=== PATIENT | female | born 1970 | race Caucasian/White ===

== ENCOUNTER 2018-09-28 18:11 | Emergency (ER) | payer BC ==
[2018-09-28 20:57] LABS: Absolute Lymphocytes (CBC) 1.6 K/uL (0.7-4.9); Absolute Monocytes 1.3 K/uL (0.1-1.3); Absolute Neutrophil 5.8 K/uL (1.8-8.0); Basophils % 0.6 % (0-1.3); Eosinophils % 0.8 % (0-4.4); Hematocrit 34.9 % (36.0-45.0); Lymphocytes % 18.3 % (15.3-44.8); MPV 9.4 fL (7.6-11.3); Monocytes % 14.7 % (3.3-12.3); RBC Red Blood Cell Count 3.99 M/uL (3.86-4.86)
[2018-09-28] MEDS ORDERED: NA CHLORIDE 0.9% 1,000 ML ONE (21:02)
[2018-09-28 21:17] LABS: Urine Blood 1+ (NEG); Urine Glucose NEGATIVE (NEG); Urine Protein NEGATIVE (NEG)
[2018-09-28] MEDS ORDERED: CIPROFLOXACIN HCL 500 MG TAB ONE (21:28)
[2018-09-28 21:31] LABS: Urine Bacteria >50 /HPF (<20); Urine RBC NONE SEEN /HPF (NONE SEEN)
[2018-09-28 21:32] LABS: Urine Culture Reflex Order REFLEXED
--- NOTE | 2018-09-28 21:49 | ER ---
Nurse's Notes [facility] Name: Mallory Santiago Age: 48 yrs Sex: Female : 1970 Arrival Date: 09/28/2018 Time: 18:14 Bed 19 Private MD: Heath De La Garza E Diagnosis: Urinary tract infection, site not specified Presentation: 09/28 19:17 Presenting complaint: Patient states: "I having heat flashes for a week now. I though jd3 it was just menopause, but I was running a fever. I took 4 ibuprofen and feeling better since waiting, but I just won't go away. I was seen at urgent care and with my vital signs over there they said to come here.". Transition of care: patient was not received from another setting of care. Onset of symptoms was September 18, 2018. Risk Assessment: Do you want to hurt yourself or someone else? Patient reports no desire to harm self or others. Initial Sepsis Screen: Does the patient meet any 2 criteria? No. Patient's initial sepsis screen is negative. Does the patient have a suspected source of infection? No. Patient's initial sepsis screen is negative. Care prior to arrival: None. 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 - Social history:: Smoking status: Patient/guardian denies using tobacco. - Ebola Screening: : Patient negative for fever greater than or equal to 101.5 degrees Fahrenheit, and additional compatible Ebola Virus Disease symptoms. - Family history:: not pertinent. - Hospitalizations: : No recent hospitalization is reported. Screenin:58 Abuse screen: Denies threats or abuse. Nutritional screening: No deficits noted. tl2 Tuberculosis screening: No symptoms or risk factors identified. Fall Risk None identified. Assessment: 20:40 General: Appears in no apparent distress. uncomfortable, Behavior is calm, cooperative, tl2 appropriate for age. General: Reports hot flashes. Pain: Complains of pain in left low back and right low back. Neuro: Level of Consciousness is awake, alert, obeys commands, Oriented to person, place, time, situation. Cardiovascular: Denies chest pain. Respiratory: Airway is patent Respiratory effort is even, unlabored, Respiratory pattern is regular, symmetrical. GI: No signs and/or symptoms were reported involving the gastrointestinal system. : No signs and/or symptoms were reported regarding the genitourinary system. Derm: Skin is pink, warm \\T\\ dry. 22:01 Reassessment: Patient and/or family updated on plan of care and expected duration. Pain ea level reassessed. Patient is alert, oriented x 3, equal unlabored respirations, skin warm/dry/pink. Discharge instruction given to patient, verbalized the understanding of instruction Patient states feeling better. Vital Signs: 19:23 BP 120 / 84; Pulse 97; Resp 17 S; Temp 100.3(O); Pulse Ox 98% on R/A; Weight 90.72 kg jd3 (R); Height 5 ft. 6 in. (167.64 cm) (R); Pain 0/10; 20:30 BP 131 / 81; Pulse 90; Resp 18; Temp 99.5(O); Pulse Ox 100% on R/A; mt 22:02 BP 130 / 91; Pulse 90; Resp 18; Temp 98.7(O); Pulse Ox 99% ; ea 19:23 Body Mass Index 32.28 (90.72 kg, 167.64 cm) jd3 ED Course: 18:14 Patient arrived in ED. rg4 18:14 Heath De La Garza MD is Private Physician. rg4 19:21 Triage completed. jd3 19:24 Arm band placed on Patient notified of wait time. jd3 20:25 Jaswinder Serrano MD is Attending Physician. rn 20:35 Rani Avalos RN is Primary Nurse. tl2 20:45 Inserted saline lock: 20 gauge in left antecubital area, using aseptic technique. Blood tl2 collected. 20:58 Patient has correct armband on for positive identification. Bed in low position. Call tl2 light in reach. Side rails up X 1. Adult w/ patient. 21:55 IV discontinued, intact, bleeding controlled, No redness/swelling at site. Pressure ea dressing applied. 22:02 No provider procedures requiring assistance completed. ea Administered Medications: 21:08 Drug: NS 0.9% 1000 ml Route: IV; Rate: 1000 ml; Site: left antecubital; tl2 21:19 Drug: Cipro 500 mg Route: PO; tl2 Outcome: 21:49 Discharge ordered by . rn 22:02 Discharged to home ambulatory, with friend. ea 22:02 Condition: improved 22:02 Discharge instructions given to patient, Instructed on discharge instructions, follow up and referral plans. medication usage, Demonstrated understanding of instructions, follow-up care, medications, Prescriptions given X 1. 22:03 Patient left the ED. ea Addendum: 10/02/2018 07:53 Addendum: Culture Results: Positive urine culture. No further action required. Bacteria i w sensitive to prescribed antibiotic. Signatures: Ofe Garcia, RN Jaswinder Wills MD MD rn Knox, Taylor, RN RN tl2 Brooklyn Mendez Moriah mt Antunez, Elena, RN RN ea Davies, Jonathon, RN RN jd3
--- NOTE | 2018-09-28 21:49 | EDPHYS ---
Physician Documentation [facility] Name: Mallory Santiago Age: 48 yrs Sex: Female : 1970 Arrival Date: 09/28/2018 Time: 18:14 Bed 19 Private MD: Heath De La Garza E ED Physician Jaswinder Serrano HPI: 09/28 21:46 This 48 yrs old Female presents to ER via Ambulatory with complaints of rn Weakness, Fever, High Blood Pressure. 21:46 Reports fever, weakness, low back pain, fatigue and malaise. No other symptoms. . rn Onset: The symptoms/episode began/occurred 2 day(s) ago. Severity of symptoms: At their worst the symptoms were mild in the emergency department the symptoms are unchanged. The patient has not experienced similar symptoms in the past. The patient has not recently seen a physician. 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 - Social history:: Smoking status: Patient/guardian denies using tobacco. - Ebola Screening: : Patient negative for fever greater than or equal to 101.5 degrees Fahrenheit, and additional compatible Ebola Virus Disease symptoms. - Family history:: not pertinent. - Hospitalizations: : No recent hospitalization is reported. ROS: 21:46 Constitutional: + fever Eyes: Negative for injury, pain, redness, and discharge, Neck: rn Negative for injury, pain, and swelling, Cardiovascular: Negative for chest pain, palpitations, and edema, Respiratory: Negative for shortness of breath, cough, wheezing, and pleuritic chest pain, Abdomen/GI: Negative for abdominal pain, nausea, vomiting, diarrhea, and constipation, Back: + low back pain MS/Extremity: Negative for injury and deformity, Skin: Negative for injury, rash, and discoloration, Neuro: + generalized weakness Exam: 21:46 Constitutional: This is a well developed, well nourished patient who is awake, alert, rn and in no acute distress. Head/Face: Normocephalic, atraumatic. Eyes: Pupils equal round and reactive to light, extra-ocular motions intact. Lids and lashes normal. Conjunctiva and sclera are non-icteric and not injected. Cornea within normal limits. Periorbital areas with no swelling, redness, or edema. ENT: MMM, no stridor Neck: Trachea midline, no thyromegaly or masses palpated, and no cervical lymphadenopathy. Supple, full range of motion without nuchal rigidity, or vertebral point tenderness. No Meningismus. Cardiovascular: Regular rate and rhythm. No pulse deficits. Respiratory: Lungs have equal breath sounds bilaterally, clear to auscultation. No increased work of breathing, no retractions or nasal flaring. Abdomen/GI: sof,t non-tender MS/ Extremity: Pulses equal, no cyanosis. Neurovascular intact. Full, normal range of motion. Equal circumference. Neuro: Awake and alert, GCS 15, oriented to person, place, time, and situation. Cranial nerves II-XII grossly intact. Motor strength 5/5 in all extremities. Sensory grossly intact. Cerebellar exam normal. Vital Signs: 19:23 BP 120 / 84; Pulse 97; Resp 17 S; Temp 100.3(O); Pulse Ox 98% on R/A; Weight 90.72 kg jd3 (R); Height 5 ft. 6 in. (167.64 cm) (R); Pain 0/10; 20:30 BP 131 / 81; Pulse 90; Resp 18; Temp 99.5(O); Pulse Ox 100% on R/A; mt 22:02 BP 130 / 91; Pulse 90; Resp 18; Temp 98.7(O); Pulse Ox 99% ; ea 19:23 Body Mass Index 32.28 (90.72 kg, 167.64 cm) jd3 MDM: 20:25 Patient medically screened. rn 21:46 Differential Diagnosis UTI, flu, viral syndrome. Data reviewed: vital signs, nurses rn notes, lab test result(s), and as a result, I will discharge patient. Counseling: I had a detailed discussion with the patient and/or guardian regarding: the historical points, exam findings, and any diagnostic results supporting the discharge/admit diagnosis, lab results, the need for outpatient follow up, to return to the emergency department if symptoms worsen or persist or if there are any questions or concerns that arise at home. Response to treatment: the patient's symptoms have mildly improved after treatment, and as a result, I will discharge patient. Special discussion: I discussed with the patient/guardian in detail that at this point there is no indication for admission to the hospital. It is understood, however, that if the symptoms persist or worsen the patient needs to return immediately for re-evaluation. 09/28 20:41 Order name: CBC with Diff; Complete Time: 21:46 rn 09/28 20:41 Order name: Basic Metabolic Panel; Complete Time: :46 rn 09/28 20:41 Order name: Urine Culture 09/28 20:41 Order name: Urine Microscopic Only; Complete Time: :46 09/28 20:41 Order name: Flu; Complete Time: :46 09/28 20:41 Order name: Strep; Complete Time: :46 09/28 20:41 Order name: IV Start; Complete Time: 20:43 09/28 20:41 Order name: Urine Dipstick-Ancillary (obtain specimen); Complete Time: 20:43 09/28 20:57 Order name: Urine Dipstick--Ancillary (enter results); Complete Time: 21:46 ar 09/28 20:57 Order name: Urine --Ancillary (enter results); Complete Time: :46 [facility] 09/28 21:26 Order name: Throat Culture EDMS Administered Medications: 21:08 Drug: NS 0.9% 1000 ml Route: IV; Rate: 1000 ml; Site: left antecubital; tl2 21:19 Drug: Cipro 500 mg Route: PO; tl2 Disposition: 09/28/18 21:49 Discharged to Home. Impression: Urinary tract infection, site not specified. - Condition is Stable. - Discharge Instructions: Urinary Tract Infection, Adult. - Prescriptions for Cipro 500 mg Oral Tablet - take 1 tablet by ORAL route every 12 hours for 10 days; 20 tablet. - Medication Reconciliation Form, Thank You Letter, Antibiotic Education, Prescription Opioid Use form. - Follow up: Private Physician; When: As needed; Reason: Recheck today's complaints, Re-evaluation by your physician. - Problem is new. - Symptoms have improved. Signatures: Dispatcher [employer] EDMS Jaswinder Serrano MD MD rn Knox, Taylor, RN RN tl2 Kristina Dick, RN RN ea Beto Echavarria RN RN jd3 Corrections: (The following items were deleted from the chart) 22:03 21:49 09/28/2018 21:49 Discharged to Home. Impression: Urinary tract infection, site ea not specified. Condition is Stable. Prescriptions for Cipro 500 mg Oral Tablet - take 1 tablet by ORAL route every 12 hours for 10 days; 20 tablet. and Forms are Medication Reconciliation Form, Thank You Letter, Antibiotic Education, Prescription Opioid Use. Follow up: Private Physician; When: As needed; Reason: Recheck today's complaints, Re-evaluation by your physician. Problem is new. Symptoms have improved. rn
== END 2018-09-28 22:03 | disposition home or self-care (01) ==
LOC: ER 18:11
DX: N39.0 Urinary tract infection, site not specified (principal)
CPT/HCPCS: 36415; 80048; 81003; 81015; 81025; 85025; 87070; 87077; 87081; 87086; 87088; 87186; 87804; 99284; J7030

== ENCOUNTER 2018-12-28 07:41 | Day surgery (SDC) | payer BC ==
[2018-12-28] MEDS ORDERED: Ringers Lactate 1,000 ML IV ONE (08:25)
[2018-12-28] MEDS ORDERED: PROPOFOL 200 MG/20 ML VIAL IV ONE (09:57)
[2018-12-28] MEDS ORDERED: LIDOCAINE 2% MPF 5 ML VIAL ONE (09:57)
[2018-12-28] MEDS ORDERED: MIDAZOLAM HCL 2 MG/2 ML INJ ONE (09:57)
[2018-12-28] MEDS ORDERED: FENTANYL CITR 100 MCG/2 ML ONE (09:57)
[2018-12-28] MEDS ORDERED: ONDANSETRON 4 MG/2 ML VIAL ONE (09:58)
[2018-12-28] MEDS ORDERED: LIDOCAINE 1% W/EPI 1:100,000 MDV 50 ML VIAL ONE (10:01)
[2018-12-28] MEDS ORDERED: NA CHLORIDE 0.9% 1,000 ML ONE (10:01)
[2018-12-28] MEDS ORDERED: KETOROLAC 30 MG/ML INJ ONE (11:06)
--- NOTE | 2018-12-29 00:12 | OP ---
Date of Procedure: 12/28/2018 Surgeon: Aleisha Woodson MD Preoperative Diagnosis: Postmenopausal bleeding. Postoperative Diagnoses: Postmenopausal bleeding and endometrial polyp. Procedures: Hysteroscopy, polypectomy, dilation and curettage. Anesthesia: MAC plus paracervical block. Specimens: Endometrial curettings and polyp. Complications: No complications. Drains: None. Patient's Condition: Stable. Findings: There was an endometrial polyp, soft, about 1.5 cm in the uterine cavity starting in the p osterior wall inferior to the right coronal end. The rest of the endometrium appeared to be slightly thickened. Both tubal ostia were visualized. Polyp was removed; however, it was not removed as a s chelo specimen became of its texture being very friable. The patient is a 48-year-old lady with secondary amenorrhea for more than 12 months, started to have some bleeding after starting her breast Brisdelle for menopausal symptoms, which is a nonhormonal the rapy. Evaluation with ultrasound showed thickened endometrium, so plan was to get endometrial sampli ng. Therefore, she was consented for this procedure and brought to the hospital. Description Of Procedure: After informed consent was verified, she was taken back to the OR, placed in a supine fashion on the operating table. After MAC was given, she was placed in dorsal lithotomy position. Pelvic exam was performed. Uterus found to be anteflexed, cervix high. Speculum placed t o expose the cervix, anterior lip grasped with 2 Allis clamps after injecting with 1% lidocaine mixed with 1:100,000 epinephrine. About 8 cc was injected here. Then 8 cc on each side was injected at 4 and 8 o'clock positions of the cervicovaginal junction for a paracervical block. Prep x3 with Betad ine was done. Direct hysteroscopy was performed. The SlimLine hysteroscope entering the cervical ca nal and then into the uterine cavity. Just at the lower aspect of the endometrial canal there was th e polyp that was visualized, pictures were taken. The polyp was traced back to the top of the multisensor intelligence officer ior wall towards the right. Rest of the endometrium also appeared to be thickened. Scope was pulled out and endometrial polyp was attempted to be removed with the help of Carlos forceps. As the tiss ue was friable, was coming out in a very small fragments, so larger endometrial polyp forceps was ins erted and the polypoid material retrieved. Then curettings were performed with a medium #2 endometri al curette. All the specimens were handed out for permanent pathology. Hysteroscopy was performed j ust to re-evaluate the cavity and the polyp was removed. Instrument, needle and sponge counts were done and were correct at the end the case. The patient silvana erated the procedure well. She was recovered from anesthesia in the OR and taken to PACU in stable c ondition. She will follow up with me in 1 week. ARNOLDO Voice ID: [id number] Report ID: [id number]
== END 2018-12-28 11:40 | disposition home or self-care (01) ==
LOC: OR 07:41
PROVIDERS: ATTEND Obstetrics & Gynecology
PROC: 0UB97ZX Excision of Uterus, Via Natural or Artificial Opening, Diagnostic (ICD-10-PCS; 2018-12-28)
PROC: 0UJD8ZZ Inspection of Uterus and Cervix, Via Natural or Artificial Opening Endoscopic (ICD-10-PCS; 2018-12-28)
PROC: 0UDB7ZX Extraction of Endometrium, Via Natural or Artificial Opening, Diagnostic (ICD-10-PCS; principal; 2018-12-28 10:30)
DX: N71.1 Chronic inflammatory disease of uterus (principal); N85.01 Benign endometrial hyperplasia; N84.0 Polyp of corpus uteri; N95.0 Postmenopausal bleeding; I10 Essential (primary) hypertension; Z79.899 Other long term (current) drug therapy
CPT/HCPCS: 81025; 88305; J2250; J2405; J2704; J3010; J7030

== ENCOUNTER 2019-03-08 09:23 | Day surgery (SDC) | payer BC ==
[2019-03-05 11:27] LABS: Urine Appearance CLEAR; Urine Bilirubin NEGATIVE (NEG); Urine Blood NEGATIVE (NEG); Urine Color YELLOW; Urine Glucose NEGATIVE (NEG); Urine Protein NEGATIVE (NEG); Urine Specific Gravity 1.015 (1.005-1.030); Urine Urobilinogen 0.2 mg/dL (0.2-1.0); Urine pH 6.5 (5.0-7.0)
[2019-03-05 11:29] LABS: Urine Microscopic Reflex NO UMIC
[2019-03-05 11:31] LABS: Absolute Lymphocytes (CBC) 1.7 K/uL (0.7-4.9); Basophils % 0.8 % (0-1.3); Hematocrit 39.4 % (36.0-45.0); Lymphocytes % 31.3 % (15.3-44.8); MPV 9.5 fL (7.6-11.3); RBC Red Blood Cell Count 4.46 M/uL (3.86-4.86)
--- OUTSIDE RECORDS SUMMARY | 2019-03-08 09:26 | XMS REPORT | Summary of Care ---
:1970 Author Organization [facility] Address [address] [place] [id number] Care Team Providers Name Role Phone Pcp, Patient Does Not Have A Primary Care Provider Reason for Visit Radiology Services (Routine) Status Reason Specialty Diagnoses / Referred By Referred To Procedures Contact Contact New Request Diagnostic Diagnoses Left knee pain, unspecified chronicity Yadiel Ventura Radiology Procedures XR KNEE <3 VW [facility] MD Sherrill [address] [place] [address] Encounter Details Date Type Department Care Team Description 02/05/2019 Hospital [facility] [address] [place] [address] [place] [phone] Allergies No Known Allergiesdocumented as of this encounter (statuses as of 02/06/2019) Medications Medication Sig Dispensed Refills Start Date End Date Status hydrochlorothiazide 5 03/25/2015 Active (ESIDRIX) 25 mg tablet valACYclovir (VALTREX) 5 03/25/2015 Active 500 mg tablet terbinafine HCl (LAMISIL) Take 1 Tab by 42 Tab 0 04/22/2015 Active 250 mg tablet mouth daily. PARoxetine TAKE 1 CAPSULE 4 01/18/2019 Active mesylate,menop.sym, 7.5 BY MOUTH mg capsule EVERYDAY AT BEDTIME diclofenac 75 mg EC Take 1 tablet by 60 tablet 1 02/05/2019 Active tabletIndications: Left mouth 2 (two) knee pain, unspecified times daily with chronicity meals. methylPREDNISolone Take by mouth 21 Each 0 02/05/2019 Active (MEDROL, VICKY,) 4 mg SEE-INSTRUCTIONS tabletsIndications: Left . follow package knee pain, unspecified directions chronicity documented as of this encounter (statuses as of 02/06/2019) Active Problems Not on filedocumented as of this encounter (statuses as of 02/06/2019) Social History Tobacco Use Types Packs/Day Years Used Date Never Smoker Smokeless Tobacco: Never Used Alcohol Use Drinks/Week oz/Week Comments Yes 0 Standard drinks or equivalent 0.0 Sex Assigned at Date Recorded Not on file Job Start Date Occupation Industry Not on file Not on file Not on file Travel History Travel Start Travel End No recent travel history available. documented as of this encounter Last Filed Vital Signs Not on filedocumented in this encounter Plan of Treatment Name Type Priority Associated Diagnoses Date/Time XR KNEE <3 VW LEFT IMAGING Routine Left knee pain, 02/05/2019 2:19 PM CDT unspecified chronicity Name Type Priority Associated Diagnoses Order Schedule XR KNEE <3 VW LEFT IMAGING Routine Left knee pain, 1 Occurrences starting unspecified chronicity 02/05/2019 until 02/05/2019 Health Maintenance Due Date Last Done Comments DTaP,Tdap,and Td Vaccines ( - 1989 Tdap) PAP SMEAR 1991 MAMMOGRAM 2010 INFLUENZA VACCINE 03/11/2019 PNEUMOCOCCAL 0-64 YEARS COMBINED Aged Out No longer eligible based on SERIES patient's age to complete this topic documented as of this encounter Results Not on filedocumented in this encounter Visit Diagnoses Diagnosis Left knee pain, unspecified chronicity documented in this encounter Insurance Payer Benefit Plan Subscriber ID Effective Dates Phone Address Type / Group BCBS OF [facility] [id number] 2013-Heidi [phone] [address] PPO/POS [id number] [id number] [place] [address] documented as of this encounter
--- OUTSIDE RECORDS SUMMARY | 2019-03-08 09:26 | XMS REPORT ---
:1970 [facility] Address [address] [place] [address] [place] [id number] Care Team Providers Name Role Phone Unavailable Unavailable Unavailable Problems This patient has no known problems. Allergies, Adverse Reactions, Alerts This patient has no known allergies or adverse reactions. Medications This patient has no known medications.
[2019-03-08] MEDS ORDERED: PROPOFOL 200 MG/20 ML VIAL IV ONE (09:42)
[2019-03-08] MEDS ORDERED: MIDAZOLAM HCL 2 MG/2 ML INJ ONE ×2 (09:42→10:28)
[2019-03-08] MEDS ORDERED: LIDOCAINE 1% MPF 2 ML AMPULE ONE (09:42)
[2019-03-08] MEDS ORDERED: FENTANYL CITR 100 MCG/2 ML ONE ×4 (09:42→14:21)
[2019-03-08] MEDS ORDERED: Ringers Lactate 1,000 ML IV ONE ×2 (09:43→12:38)
[2019-03-08] MEDS ORDERED: CEFAZOLIN/SWI 1gm 1 GM/10 ML SYR ONE (09:44)
[2019-03-08] MEDS ORDERED: LIDOCAINE 2% MPF 5 ML VIAL ONE (09:44)
[2019-03-08] MEDS ORDERED: CEFAZOLIN/SWI 2gm 2 GM/20 ML SYR ONE (09:44)
[2019-03-08 10:24] LABS: Specific Gravity 1.025 (1.005-1.030)
[2019-03-08] MEDS: NA CHLORIDE 0.9% 1,000 ML ONE ×2 (10:31→10:35)
[2019-03-08] MEDS: CEFAZOLIN 3 GM in NA CHLORIDE 0.9% 100 ML IM SCH ×2 (10:32→10:35)
[2019-03-08] MEDS ORDERED: GLYCOPYRROLATE 0.2 MG/ML SYR ONE ×2 (10:54→13:15)
[2019-03-08] MEDS ORDERED: dexAMETHasone 10 MG/ML VIAL ONE (10:55)
[2019-03-08] MEDS ORDERED: SCOPOLAMINE HYDROBROMIDE PATCH TD ONE (11:06)
[2019-03-08] MEDS ORDERED: ROCURONIUM 50 MG/5 ML VIAL IV ONE (11:24)
[2019-03-08] MEDS: Ringers Lactate 1,000 ML IV ONE ×2 (11:30→11:35)
[2019-03-08] MEDS ORDERED: MORPHINE 10 MG/ML VIAL ONE (11:33)
[2019-03-08] MEDS ORDERED: HYDRALAZINE HCL 20 MG/ML VIAL ONE (11:37)
[2019-03-08] MEDS ORDERED: EPHEDRINE SULF 50 MG/ML VIAL ONE (12:30)
[2019-03-08] MEDS ORDERED: Phenylephrine HCl 10 MG/ML 1 ML VIAL ONE (12:41)
[2019-03-08] MEDS ORDERED: NS 0.9% VIAL 20 ML ONE (12:43)
[2019-03-08] MEDS ORDERED: NEOSTIGMINE 1 MG/ML -10 ML VIAL ONE (13:12)
[2019-03-08] MEDS: HYDROMORPHONE HCL 1 MG/ML INJ ONE ×2 (13:48→13:59)
[2019-03-08] MEDS ORDERED: HYDROCODONE/APAP 10/325 TAB ONE (14:29)
--- NOTE | 2019-03-08 23:48 | OP ---
Date of Procedure: 03/08/2019 Surgeon: Aleisha Woodson MD Director Dental Services: Annmarie Kent. Preoperative Diagnoses: Thickened endometrium, heavy periods, pelvic pain, history of chronic pelvic inflammatory disease Postoperative Diagnoses: AUB-E/A, adenomyosis, extensive adhesions of the bladder to the uterus, ext ensive endometriosis. Procedures Performed: Total laparoscopic hysterectomy, bilateral salpingo-oophorectomy, endometriosi s excision, extensive lysis of bladder adhesions, cystoscopy. Anesthesia: General endotracheal. Specimens: Uterus, bilateral tubes and ovaries. Endometriosis on the right mesosalpinx and the left uterosacral ligament were included with the specimen. Minimal amount of periureteric endometriosis left on the peritoneum. Cystoscopy negative with strong streams of urine. No injury to the bladder. Complications/drains: No complications or drains. Findings: Endometriosis seen in the right mesosalpinx, left uterosacral ligament, lateral wall on th e right side. Extensive adhesions of the uterus to the anterior abdominal wall to the bladder all th e way from one round ligament to the other with no mobility for the uterus. Both proximal hydrosalpi nges and endometriosis on the right side. Indications For Procedure: Patient is a 49-year-old referred to me for pelvic pain, history of chron ic PID for this patient. Sampling, no endometrial atypia or malignancy. After discussing all the op tions including alternative medical treatments, we consented for hysterectomy, bilateral salpingectom y. Oophorectomy was recommended as well as she is 49 with pelvic pain without any other abnormal pel luc pathology. She was counseled that the benefits of surgery and relief from pain were higher than the risk of hormone therapy and if need be postoperatively that we would briefly give her hormone the rapy. After understanding all this, patient was consented, taken back to the OR. She also had histo ry of 2 sections, tubal ligation, and classical cesareans. So, explained that the risk of b ladder injury would be higher due to her scar and patient understood this; and discussion about cysto scopy, possible leaving the catheter in if there was an injury that occurs during the surgery and rep air for about a week was done, and the patient was okay with this. Description Of Procedure: After informed consent was verified, she was brought back to the OR. 3 g of Ancef was given. Patient was placed in a supine position on the operating table, general anesthes ia given, placed in a dorsal lithotomy position using Carlos stirrups. Arms tucked by the side. SCDs placed. Time-out done. Uterus palpated and enlarged, decreased mobility, anteflexed. No nodularit y was palpated. Abdomen, vulva, vagina, and perineum were prepped and draped in a sterile fashion. Goetz was placed to drain the bladder and attached to cysto tubing for retrograde filling. Large VCa re introduced into the uterus and fixed in place. There was no descensus of the uterus. 1 cm infraumbilical incision was made with scalpel using open laparoscopy technique. Fascia was inci sed, tagged with sutures of 0 Vicryl, and peritoneum entered bluntly with my finger. S-retractors we re placed, Blayne introduced. Site of entry checked, unremarkable. 10 mm suprapubic and 5 mm left l ower quadrant ports were placed under direct vision. The upper abdominal surface was unremarkable. Patient was placed in Trendelenburg. Omentum and the small bowel were retracted superiorly. Inferiorly, the tubes and ovaries as dictated above. Endomet riosis seen as above and there were extensive adhesions of the bladder to the anterior wall of the ut erus and the abdominal wall together. So, first LigaSure was taken using the cutting mode on this. All the adhesions were sharply taken down. Windows were made after identifying that the dome of the bladder was involved in these adhesions. Careful dissection was performed sharply with scissors and the LigaSure taking down the first few layers of the adhesions in the center, then onto the side on t he right, then finally on the left side. The adhesions were most dense on this side starting from th e level of the round ligament. There was completely obliterated anterior broad ligament because of t he adhesions of the bladder. Once the lateral broad ligament was opened up parallel to the infundibu lopelvic ligament, the sidewall was opened up the ovarian vessels from the larger vessels in the lateral wall including the iliac vessels. Then, this dissection was carried inferiorly and di stally towards the mesosalpinx and then posterior broad ligament. Once all this was isolated, the ur eter was identified and the ureter was dissected laterally and inferiorly while creating a window in the peritoneum opening up the posterior broad ligament. Once this was done, this extension was don ed all the way down to the IP to isolate the IP on the pedicle. Then, the utero-ovarian ligament, me sosalpinx, tube were all cauterized and cut, and then the infundibulopelvic ligament was cauterized a nd cut and left with the uterine specimen. Posterior broad ligament was dissected all the way to the level of the left distal uterosacral ligame nt. Here, the dissection was performed staying slightly laterally dissecting the ureter away and cristopher ping the endometriotic implants with the peritoneal covering of the uterus. This was done by the hel p of LigaSure and dissecting the implants medially. Then, going to the posterior cul-de-sac, the per itoneum was opened up. Then, coming to the top, dissection was performed to take down the round liga ment once this was isolated both superiorly and inferiorly. Once this was , then the broad ligament was taken down. After restoring the anatomy of the bladder and the anterior cul-de-sac, the n this dissection was performed. Once I came down to the bladder flap, the LigaSure was used to open up the peritoneum. Then, window was made posterior to the bladder right on top of the anterior vagi nal wall. This was taken down with the help of the LigaSure to separate it from anterior vaginal wal l so this could be pushed inferiorly for my vaginal cuff incision. Then, the vessels were isolated. On the opposite side, similar dissection was performed. The mesosalpinx was dissected much more lat erally in order for me to get the endometriotic implants included with the specimen. Once this was d one, the tube was removed separately and removed through the suprapubic port and then the round ligam ent was taken down with anterior broad ligament. Again, the same adhesions were present on the sides , so time was taken to push spread and made windows and take down the bladder away from the anterior broad ligament anterior aspect of the suprapubic area. After all these were taken down, then the rou nd ligament was taken down and then the posterior broad ligament was dissected all the way to the rig ht uterosacral ligament and then the broad ligament skeletonized. There was not much left here. The anterior vaginal wall was dissected at the level of the vaginal cuff. Monopolar hook blade was used to create an opening in the fascia entering the loose areolar tissue entering the vesicovaginal spac e. Once this avascular space was entered, the bladder was pushed inferiorly at least 2 cm below the level of the vaginal cuff; and once all the bladder was dissected away, then monopolar was used to ex tend this incision on both sides. Then, the vessels were taken down on the right side with the bipol ar basket tip, then with the help of the LigaSure vessel sealer. Then, the cardinal ligaments were a lso dissected and taken down on the right side. Then, all this dissection was performed on the left side. The cup was nicely exposed. Monopolar hook blade was used to perform a circumferential colpot zoë and the specimen was detached. 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 This was slowly maneuvered out and the e ntire specimen was retrieved without any problems and the uterus was attached to the left tube and ov jenny. The right ovary was dissected as well and pulled out through the vagina and the vaginal closure was performed. For occlusion, a lap sponge was stuffed into glove and placed in the vagina for pneu mo-occlusion. Then, after thorough irrigation and suction were performed, the colpotomy was closed i n 2 layers with the help of 0 barbed suture. Starting from the left side, a continuous running sutur e was placed all the way to the right and then a second imbricating layer was placed on top of this t o close it together and then it was back sutured about another 2 stitches so that they would not unwi nd. Thorough irrigation and suction were performed. Excellent hemostasis was secured. Both ureters had no evidence of electrical, mechanical, or thermal injury to them. Then, the trocars were remove d under direct vision. Fascia at the umbilicus was closed with the help of 0 Vicryl in a figure-of-e ight fashion. Cystoscopy was performed with 17-[place] sheath, 30-degree lens and normal saline. Exc ellent streams of urine from the ureteric orifices. No trauma to the bladder. The bladder was drain ed. Vaginal cuff was inspected and there was excellent closure and good support. All the instrument , needle, and sponge counts were done and were correct at the end of the case. After the Goetz was r emoved, all the counts were correct. Patient was recovered from anesthesia and taken to the PACU in stable condition. She will follow up with me in 1 week. ARNOLDO Voice ID: [id number] Report ID: [id number]
== END 2019-03-08 15:34 | disposition home or self-care (01) ==
LOC: OR 09:23
PROVIDERS: ATTEND Obstetrics & Gynecology
PROC: 0UT24ZZ Resection of Bilateral Ovaries, Percutaneous Endoscopic Approach (ICD-10-PCS; 2019-03-08)
PROC: 0UT74ZZ Resection of Bilateral Fallopian Tubes, Percutaneous Endoscopic Approach (ICD-10-PCS; 2019-03-08)
PROC: 0TNB4ZZ Release Bladder, Percutaneous Endoscopic Approach (ICD-10-PCS; 2019-03-08)
PROC: 0UB44ZZ Excision of Uterine Supporting Structure, Percutaneous Endoscopic Approach (ICD-10-PCS; 2019-03-08)
PROC: 0DBW4ZZ Excision of Peritoneum, Percutaneous Endoscopic Approach (ICD-10-PCS; 2019-03-08)
PROC: 0UT94ZZ Resection of Uterus, Percutaneous Endoscopic Approach (ICD-10-PCS; principal; 2019-03-08 10:30)
DX: N95.0 Postmenopausal bleeding (principal); N80.0 Endometriosis of uterus; N80.2 Endometriosis of fallopian tube; N80.3 Endometriosis of pelvic peritoneum; N32.89 Other specified disorders of bladder; D25.2 Subserosal leiomyoma of uterus; N84.0 Polyp of corpus uteri; N83.201 Unspecified ovarian cyst, right side; N83.8 Other noninflammatory disorders of ovary, fallopian tube and broad ligament; N73.6 Female pelvic peritoneal adhesions (postinfective); N95.1 Menopausal and female climacteric states; B00.9 Herpesviral infection, unspecified; I10 Essential (primary) hypertension; K21.9 Gastro-esophageal reflux disease without esophagitis; Z79.899 Other long term (current) drug therapy; Z80.0 Family history of malignant neoplasm of digestive organs
CPT/HCPCS: 58571; 58662; 53899; 85025; 36415; 86900; 86850; 81025; 86901; 88307; 81003; J0360; J2704; J2710; J2370; J2250 ×2; J3010 ×4; J1100; J2001; J1170; J0690 ×2; J7030

== ENCOUNTER 2022-08-09 17:17 | Emergency (ER) | payer BC ==
--- OUTSIDE RECORDS SUMMARY | 2022-08-09 17:23 | XMS REPORT | Continuity of Care Document ---
:1970 Author Organization [facility] t Address [address] [place] [address] Care Team Providers Name Role Phone Heath De La Garza Primary Care Physician ESVIN KELLEY Attending Clinician Unavailable Esvin Kelley MD Attending Clinician Karla Ceballos Attending Clinician KARLA VALLECILLO Attending Clinician Unavailable Randy Thompson DO Attending Clinician Doctor Unassigned, [place] Attending Clinician Unavailable Ira Neri CRNA Attending Clinician Jean Pierre Barth MD Attending Clinician [phone] ESVIN KELLEY Admitting Clinician Unavailable Esvin Kelley MD Admitting Clinician Payers Payer Name Policy Type Policy Number Effective Date Expiration Date Natasha fernandes [facility] [id number] 2013 00:00:00 Problems Condition Condition Condition Status Onset Resolution Last Treating Co mments Source Name Details Category Date Date Treatment Clinician Date Obesity Obesity Disease Active 2020-0 Univers (BMI (BMI 8-03 ity of 30-39.9) 30-39.9) 00:00: [place] [address] Medical Branch Total knee Total knee Disease Active 2020-0 U nivers replacemen replacemen 02-10 it y of t status t status 00:00: [place] 00 Medical Branch Bilateral Bilateral Disease Active Overview: [facility] primary primary 01-30 Formattin ity o f osteoarthr osteoarthr 00:00: g of this [place] itis of itis of 00 note Medical knee knee might be Branch different from the original. Added automatic ally from request for surgery [id number] Allergies, Adverse Reactions, Alerts Allergy Allergy Status Severity Reaction(s) Onset Inactive Treating Comm ents Source Name Type Date Date Clinician NO KNOWN Drug Active Univers ALLERGIE Class ity of [facility] [place] Social History Social Habit Start Date Stop Date Quantity Comments Source Exposure to Not sure [facility] SARS-CoV-2 (event) Medica l Branch Tobacco use and 2020-10-21 2020-10-21 Never used [facility] exposure 00:00:00 00:00:00 Medical Branch Alcohol intake 2020-10-21 2020-10-21 0 /d [facility] 00:00:00 00:00:00 Medical Branch History [facility] 2020-02-11 2020-02-11 5 [facility] Financial 00:00:00 00:00:00 Medical Branch History [facility] Food 2020-02-11 2020-02-11 1 [facility] Worry 00:00:00 00:00:00 Medical Branch History [facility] Food 2020-02-11 2020-02-11 1 [facility] Scarcity 00:00:00 00:00:00 Medical Branch History [facility] 2020-02-11 2020-02-11 2 [facility] Transport Med 00:00:00 00:00:00 Medical [facility] History [facility] 2020-02-11 2020-02-11 2 [facility] Transport Non-Med 00:00:00 00:00:00 Medical Branch Sex [birth year] At [birth year] [facility] 00:00:00 00:00:00 Medical Branch Smoking Status Start Date Stop Date Source Unknown if ever smoked [facility] Medical [place] Never smoker [facility] [place] Medications Ordered Filled Start Stop Current Ordering Indication Dosage Frequency Signature Comments Components Source Medication Medication Date Date Medication? Clinician (SIG) Name Name methylPREDN Yes [id number] 84mg Take 21 Univers ISolone 2-12 9100 tablets by ity of (MEDROL, 00:00: mouth [place] VICKY,) 4 mg 00 SEE-INSTRU Med ical tablets CTIONS. Branch follow package directions methylPREDN 2021-0 Yes [id number] 84mg Take 21 Univers ISolone 2-12 9100 tablets by ity of (MEDROL, 00:00: mouth [place] VICKY,) 4 mg 00 SEE-INSTRU Med ical tablets CTIONS. Branch follow package directions methylPREDN 2020-0 Yes [id number] 84mg Take 21 [facility] ISolone 2-12 9100 tablets by ity of (MEDROL, 00:00: mouth [place] VICKY,) 4 mg 00 SEE-INSTRU Med ical tablets CTIONS. Branch follow package directions methylPREDN 2020-0 Yes [id number] 84mg Take 21 [facility] ISolone 2-12 9100 tablets by ity of (MEDROL, 00:00: mouth [place] VICKY,) 4 mg 00 SEE-INSTRU Med ical tablets CTIONS. Branch follow package directions methylPREDN 2020-0 Yes [id number] 84mg Take 21 Univers ISolone 2-12 9100 tablets by ity of (MEDROL, 00:00: mouth [place] VICKY,) 4 mg 00 SEE-INSTRU Med ical tablets CTIONS. Branch follow package directions methylPREDN 2020-0 Yes [id number] 84mg Take 21 Univers ISolone 2-12 9100 tablets by ity of (MEDROL, 00:00: mouth [place] VICKY,) 4 mg 00 SEE-INSTRU Med ical tablets CTIONS. Branch follow package directions pentazocine Yes 2745 1{tbl} Take 1 Un hao -naloxone 8-11 tablet by ity o f 50-0.5 mg 00:00: mouth [place] tablet 00 every 4 Medical (four) Branch hours as needed for Pain for up to 40 doses. Indication s: chronic pain pentazocine 2019-0 Yes 2745 1{tbl} Take 1 Un hao -naloxone 8-11 tablet by ity o f 50-0.5 mg 00:00: mouth [place] tablet 00 every 4 Medical (four) Branch hours as needed for Pain for up to 40 doses. Indication s: chronic pain pentazocine 2019-0 Yes 2745 1{tbl} Take 1 Un hao -naloxone 8-11 tablet by ity o f 50-0.5 mg 00:00: mouth [place] tablet 00 every 4 Medical (four) Branch hours as needed for Pain for up to 40 doses. Indication s: chronic pain pentazocine 2020-0 Yes 2745 1{tbl} Take 1 Un hao -naloxone 8-11 tablet by ity o f 50-0.5 mg 00:00: mouth [place] tablet 00 every 4 Medical (four) Branch hours as needed for Pain for up to 40 doses. Indication s: chronic pain pentazocine 2020-0 Yes 2745 1{tbl} Take 1 Un hao -naloxone 8-11 tablet by ity o f 50-0.5 mg 00:00: mouth [place] tablet 00 every 4 Medical (four) Branch hours as needed for Pain for up to 40 doses. Indication s: chronic pain pentazocine 2020-0 Yes 2745 1{tbl} Take 1 Un hao -naloxone 8-11 tablet by ity o f 50-0.5 mg 00:00: mouth [place] tablet 00 every 4 Medical (four) Branch hours as needed for Pain for up to 40 doses. Indication s: chronic pain pentazocine 2020-0 Yes 2745 1{tbl} Take 1 Un hao -naloxone 8-11 tablet by ity o f 50-0.5 mg 00:00: mouth [place] tablet 00 every 4 Medical (four) Branch hours as needed for Pain for up to 40 doses. Indication s: chronic pain pentazocine 2020-0 Yes 2745 1{tbl} Take 1 Un hao -naloxone 8-11 tablet by ity o f 50-0.5 mg 00:00: mouth [place] tablet 00 every 4 Medical (four) Branch hours as needed for Pain for up to 40 doses. Indication s: chronic pain pentazocine 2020-0 Yes 2745 1{tbl} Take 1 Un hao -naloxone 8-11 tablet by ity o f 50-0.5 mg 00:00: mouth [place] tablet 00 every 4 Medical (four) Branch hours as needed for Pain for up to 40 doses. Indication s: chronic pain pentazocine 2020-0 Yes 2745 1{tbl} Take 1 Un hao -naloxone 8-11 tablet by ity o f 50-0.5 mg 00:00: mouth [place] tablet 00 every 4 Medical (four) Branch hours as needed for Pain for up to 40 doses. Indication s: chronic pain pentazocine 2020-0 Yes 2745 1{tbl} Take 1 Un hao -naloxone 8-11 tablet by ity o f 50-0.5 mg 00:00: mouth [place] tablet 00 every 4 Medical (four) Branch hours as needed for Pain for up to 40 doses. Indication s: chronic pain pentazocine 2020-0 Yes 2745 1{tbl} Take 1 Un hao -naloxone 8-11 tablet by ity o f 50-0.5 mg 00:00: mouth [place] tablet 00 every 4 Medical (four) Branch hours as needed for Pain for up to 40 doses. Indication s: chronic pain pentazocine 2020-0 Yes 2745 1{tbl} Take 1 Un hao -naloxone 8-11 tablet by ity o f 50-0.5 mg 00:00: mouth [place] tablet 00 every 4 Medical (four) Branch hours as needed for Pain for up to 40 doses. Indication s: chronic pain pentazocine 2020-0 Yes 2745 1{tbl} Take 1 Un hao -naloxone 8-11 tablet by ity o f 50-0.5 mg 00:00: mouth [place] tablet 00 every 4 Medical (four) Branch hours as needed for Pain for up to 40 doses. Indication s: chronic pain pentazocine 2020-0 Yes 2745 1{tbl} Take 1 Un hao -naloxone 8-11 tablet by ity o f 50-0.5 mg 00:00: mouth [place] tablet 00 every 4 Medical (four) Branch hours as needed for Pain for up to 40 doses. Indication s: chronic pain pentazocine 2020-0 Yes 2745 1{tbl} Take 1 Un hao -naloxone 8-11 tablet by ity o f 50-0.5 mg 00:00: mouth [place] tablet 00 every 4 Medical (four) Branch hours as needed for Pain for up to 40 doses. Indication s: chronic pain pentazocine 2020-0 Yes 2745 1{tbl} Take 1 Un hao -naloxone 8-11 tablet by ity o f 50-0.5 mg 00:00: mouth [place] tablet 00 every 4 Medical (four) Branch hours as needed for Pain for up to 40 doses. Indication s: chronic pain pentazocine 2020-0 Yes 2745 1{tbl} Take 1 Un hao -naloxone 8-11 tablet by ity o f 50-0.5 mg 00:00: mouth [place] tablet 00 every 4 Medical (four) Branch hours as needed for Pain for up to 40 doses. Indication s: chronic pain pentazocine 2020-0 Yes 2745 1{tbl} Take 1 Un hao -naloxone 8-11 tablet by ity o f 50-0.5 mg 00:00: mouth [place] tablet 00 every 4 Medical (four) Branch hours as needed for Pain for up to 40 doses. Indication s: chronic pain pentazocine 2020-0 Yes 2745 1{tbl} Take 1 Un hao -naloxone 8-11 tablet by ity o f 50-0.5 mg 00:00: mouth [place] tablet 00 every 4 Medical (four) Branch hours as needed for Pain for up to 40 doses. Indication s: chronic pain pentazocine 2020-0 Yes 2745 1{tbl} Take 1 Un hao -naloxone 8-11 tablet by ity o f 50-0.5 mg 00:00: mouth [place] tablet 00 every 4 Medical (four) Branch hours as needed for Pain for up to 40 doses. Indication s: chronic pain pentazocine 2020-0 Yes 2745 1-2 Univer s -naloxone 8-05 tablets by ity of 50-0.5 mg 00:00: mouth [place] tablet 00 every 6 Medical hours as Branch needed for pain. Indication s: chronic pain pentazocine 2020-0 Yes 2745 1-2 Univer s -naloxone 8-05 tablets by ity of 50-0.5 mg 00:00: mouth [place] tablet 00 every 6 Medical hours as Branch needed for pain. Indication s: chronic pain pentazocine 2020-0 Yes 2745 1-2 Univer s -naloxone 8-05 tablets by ity of 50-0.5 mg 00:00: mouth [place] tablet 00 every 6 Medical hours as Branch needed for pain. Indication s: chronic pain pentazocine 2020-0 Yes 2745 1-2 Univer s -naloxone 8-05 tablets by ity of 50-0.5 mg 00:00: mouth [place] tablet 00 every 6 Medical hours as Branch needed for pain. Indication s: chronic pain pentazocine 2020-0 Yes 2745 1-2 Univer s -naloxone 8-05 tablets by ity of 50-0.5 mg 00:00: mouth [place] tablet 00 every 6 Medical hours as Branch needed for pain. Indication s: chronic pain pentazocine 2020-0 Yes 2745 1-2 Univer s -naloxone 8-05 tablets by ity of 50-0.5 mg 00:00: mouth [place] tablet 00 every 6 Medical hours as Branch needed for pain. Indication s: chronic pain pentazocine 2020-0 Yes 2745 1-2 Univer s -naloxone 8-05 tablets by ity of 50-0.5 mg 00:00: mouth [place] tablet 00 every 6 Medical hours as Branch needed for pain. Indication s: chronic pain pentazocine 2020-0 Yes 2745 1-2 Univer s -naloxone 8-05 tablets by ity of 50-0.5 mg 00:00: mouth [place] tablet 00 every 6 Medical hours as Branch needed for pain. Indication s: chronic pain pentazocine 2020-0 Yes 2745 1-2 Univer s -naloxone 8-05 tablets by ity of 50-0.5 mg 00:00: mouth [place] tablet 00 every 6 Medical hours as Branch needed for pain. Indication s: chronic pain pentazocine 2020-0 Yes 2745 1-2 Univer s -naloxone 8-05 tablets by ity of 50-0.5 mg 00:00: mouth [place] tablet 00 every 6 Medical hours as Branch needed for pain. Indication s: chronic pain pentazocine 2020-0 Yes 2745 1-2 Univer s -naloxone 8-05 tablets by ity of 50-0.5 mg 00:00: mouth [place] tablet 00 every 6 Medical hours as Branch needed for pain. Indication s: chronic pain pentazocine 2020-0 Yes 2745 1-2 Univer s -naloxone 8-05 tablets by ity of 50-0.5 mg 00:00: mouth [place] tablet 00 every 6 Medical hours as Branch needed for pain. Indication s: chronic pain pentazocine 2020-0 Yes 2745 1-2 Univer s -naloxone 8-05 tablets by ity of 50-0.5 mg 00:00: mouth [place] tablet 00 every 6 Medical hours as Branch needed for pain. Indication s: chronic pain pentazocine 2020-0 Yes 2745 1-2 Univer s -naloxone 8-05 tablets by ity of 50-0.5 mg 00:00: mouth [place] tablet 00 every 6 Medical hours as Branch needed for pain. Indication s: chronic pain pentazocine 2020-0 Yes 2745 1-2 Univer s -naloxone 8-05 tablets by ity of 50-0.5 mg 00:00: mouth [place] tablet 00 every 6 Medical hours as Branch needed for pain. Indication s: chronic pain pentazocine 2020-0 Yes 2745 1-2 Univer s -naloxone 8-05 tablets by ity of 50-0.5 mg 00:00: mouth [place] tablet 00 every 6 Medical hours as Branch needed for pain. Indication s: chronic pain pentazocine 2020-0 Yes 2745 1-2 Univer s -naloxone 8-05 tablets by ity of 50-0.5 mg 00:00: mouth [place] tablet 00 every 6 Medical hours as Branch needed for pain. Indication s: chronic pain pentazocine 2020-0 Yes 2745 1-2 Univer s -naloxone 8-05 tablets by ity of 50-0.5 mg 00:00: mouth [place] tablet 00 every 6 Medical hours as Branch needed for pain. Indication s: chronic pain pentazocine 2020-0 Yes 2745 1-2 Univer s -naloxone 8-05 tablets by ity of 50-0.5 mg 00:00: mouth [place] tablet 00 every 6 Medical hours as Branch needed for pain. Indication s: chronic pain pentazocine 2020-0 Yes 2745 1-2 Univer s -naloxone 8-05 tablets by ity of 50-0.5 mg 00:00: mouth [place] tablet 00 every 6 Medical hours as Branch needed for pain. Indication s: chronic pain pentazocine 2020-0 Yes 2745 1-2 Univer s -naloxone 8-05 tablets by ity of 50-0.5 mg 00:00: mouth [place] tablet 00 every 6 Medical hours as Branch needed for pain. Indication s: chronic pain pentazocine 2020-0 Yes 2745 1-2 Univer s -naloxone 8-05 tablets by ity of 50-0.5 mg 00:00: mouth [place] tablet 00 every 6 Medical hours as Branch needed for pain. Indication s: chronic pain pentazocine 2020-0 Yes 2745 1-2 Univer s -naloxone 8-05 tablets by ity of 50-0.5 mg 00:00: mouth [place] tablet 00 every 6 Medical hours as Branch needed for pain. Indication s: chronic pain pentazocine 2020-0 Yes 2745 1-2 Univer s -naloxone 8-05 tablets by ity of 50-0.5 mg 00:00: mouth [place] tablet 00 every 6 Medical hours as Branch needed for pain. Indication s: chronic pain HYDROcodone 2020-0 Yes 1{tbl} 1 tablet, Univers -acetaminop 8-04 Oral, ity of hen (NORCO) 17:03: Q4HPRN, [place] 10-325 mg 36 Starting Medica l tablet 1 Tue02/12/20 Bran h tablet at 1203, Until Discontinu ed, Routine, Pain (scale 4-6) hydroCHLORO 2020-0 Yes 25mg 25 mg, Univ ers thiazide 8-04 Oral, ity of (ESIDRIX) 14:00: DAILY, [place] tablet 25 00 First dose Medi jose mg on Tue02/12/20 at 0900, Until Discontinu ed, Routine enoxaparin 2020-0 Yes 30mg 30 mg, Unive rs (LOVENOX) 8-04 Subcutaneo ity of injection 13:00: us, Q12H, [place] 30 mg 00 First dose Medical on Tue02/12/20 at 0800, Until Discontinu ed, Routine acetaminoph 2020-0 Yes 4647 1{tbl} Take 1 Un hao en-codeine 8-04 tablet by ity of (TYLENOL-CO 00:00: mouth [place] DEINE #3) 00 every 4 Medical 300-30 mg (four) Branch tablet hours as needed for Pain (scale 4-6) or Pain (scale 7-10). Indication s: acute pain acetaminoph 2020-0 Yes 4647 1{tbl} Take 1 Un hao en-codeine 8-04 tablet by ity of (TYLENOL-CO 00:00: mouth [place] DEINE #3) 00 every 4 Medical 300-30 mg (four) Branch tablet hours as needed for Pain (scale 4-6) or Pain (scale 7-10). Indication s: acute pain acetaminoph 2020-0 Yes 4647 1{tbl} Take 1 Un hao en-codeine 8-04 tablet by ity of (TYLENOL-CO 00:00: mouth [place] DEINE #3) 00 every 4 Medical 300-30 mg (four) Branch tablet hours as needed for Pain (scale 4-6) or Pain (scale 7-10). Indication s: acute pain acetaminoph 2020-0 Yes 4647 1{tbl} Take 1 Un hao en-codeine 8-04 tablet by ity of (TYLENOL-CO 00:00: mouth [place] DEINE #3) 00 every 4 Medical 300-30 mg (four) Branch tablet hours as needed for Pain (scale 4-6) or Pain (scale 7-10). Indication s: acute pain acetaminoph 2020-0 Yes 4647 1{tbl} Take 1 Un hao en-codeine 8-04 tablet by ity of (TYLENOL-CO 00:00: mouth [place] DEINE #3) 00 every 4 Medical 300-30 mg (four) Branch tablet hours as needed for Pain (scale 4-6) or Pain (scale 7-10). Indication s: acute pain acetaminoph 2020-0 Yes 4647 1{tbl} Take 1 Un hao en-codeine 8-04 tablet by ity of (TYLENOL-CO 00:00: mouth [place] DEINE #3) 00 every 4 Medical 300-30 mg (four) Branch tablet hours as needed for Pain (scale 4-6) or Pain (scale 7-10). Indication s: acute pain acetaminoph 2020-0 Yes 4647 1{tbl} Take 1 Un hao en-codeine 8-04 tablet by ity of (TYLENOL-CO 00:00: mouth [place] DEINE #3) 00 every 4 Medical 300-30 mg (four) Branch tablet hours as needed for Pain (scale 4-6) or Pain (scale 7-10). Indication s: acute pain acetaminoph 2020-0 Yes 4647 1{tbl} Take 1 Un hao en-codeine 8-04 tablet by ity of (TYLENOL-CO 00:00: mouth [place] DEINE #3) 00 every 4 Medical 300-30 mg (four) Branch tablet hours as needed for Pain (scale 4-6) or Pain (scale 7-10). Indication s: acute pain acetaminoph 2020-0 Yes 4647 1{tbl} Take 1 Un hao en-codeine 8-04 tablet by ity of (TYLENOL-CO 00:00: mouth [place] DEINE #3) 00 every 4 Medical 300-30 mg (four) Branch tablet hours as needed for Pain (scale 4-6) or Pain (scale 7-10). Indication s: acute pain acetaminoph 2020-0 Yes 4647 1{tbl} Take 1 Un hao en-codeine 8-04 tablet by ity of (TYLENOL-CO 00:00: mouth [place] DEINE #3) 00 every 4 Medical 300-30 mg (four) Branch tablet hours as needed for Pain (scale 4-6) or Pain (scale 7-10). Indication s: acute pain acetaminoph 2020-0 Yes 4647 1{tbl} Take 1 Un hao en-codeine 8-04 tablet by ity of (TYLENOL-CO 00:00: mouth [place] DEINE #3) 00 every 4 Medical 300-30 mg (four) Branch tablet hours as needed for Pain (scale 4-6) or Pain (scale 7-10). Indication s: acute pain acetaminoph 2020-0 Yes 4647 1{tbl} Take 1 Un ha[facility] en-codeine 8-04 tablet by ity of (TYLENOL-CO 00:00: mouth [place] DEINE #3) 00 every 4 Medical 300-30 mg (four) Branch tablet hours as needed for Pain (scale 4-6) or Pain (scale 7-10). Indication s: acute pain acetaminoph 2020-0 Yes 4647 1{tbl} Take 1 Un hao en-codeine 8-04 tablet by ity of (TYLENOL-CO 00:00: mouth [place] DEINE #3) 00 every 4 Medical 300-30 mg (four) Branch tablet hours as needed for Pain (scale 4-6) or Pain (scale 7-10). Indication s: acute pain acetaminoph 2020-0 Yes 4647 1{tbl} Take 1 Un hao en-codeine 8-04 tablet by ity of (TYLENOL-CO 00:00: mouth [place] DEINE #3) 00 every 4 Medical 300-30 mg (four) Branch tablet hours as needed for Pain (scale 4-6) or Pain (scale 7-10). Indication s: acute pain acetaminoph 2020-0 Yes 4647 1{tbl} Take 1 Un ha[facility] en-codeine 8-04 tablet by ity of (TYLENOL-CO 00:00: mouth [place] DEINE #3) 00 every 4 Medical 300-30 mg (four) Branch tablet hours as needed for Pain (scale 4-6) or Pain (scale 7-10). Indication s: acute pain acetaminoph 2020-0 Yes 4647 1{tbl} Take 1 Un hao en-codeine 8-04 tablet by ity of (TYLENOL-CO 00:00: mouth [place] DEINE #3) 00 every 4 Medical 300-30 mg (four) Branch tablet hours as needed for Pain (scale 4-6) or Pain (scale 7-10). Indication s: acute pain acetaminoph 2020-0 Yes 4647 1{tbl} Take 1 Un ha[facility] en-codeine 8-04 tablet by ity of (TYLENOL-CO 00:00: mouth [place] DEINE #3) 00 every 4 Medical 300-30 mg (four) Branch tablet hours as needed for Pain (scale 4-6) or Pain (scale 7-10). Indication s: acute pain acetaminoph 2020-0 Yes 4647 1{tbl} Take 1 Un [facility] en-codeine 8-04 tablet by ity of (TYLENOL-CO 00:00: mouth [place] DEINE #3) 00 every 4 Medical 300-30 mg (four) Branch tablet hours as needed for Pain (scale 4-6) or Pain (scale 7-10). Indication s: acute pain acetaminoph 2020-0 Yes 4647 1{tbl} Take 1 Un ha[facility] en-codeine 8-04 tablet by ity of (TYLENOL-CO 00:00: mouth [place] DEINE #3) 00 every 4 Medical 300-30 mg (four) Branch tablet hours as needed for Pain (scale 4-6) or Pain (scale 7-10). Indication s: acute pain acetaminoph 2020-0 Yes 4647 1{tbl} Take 1 Un [facility] en-codeine 8-04 tablet by ity of (TYLENOL-CO 00:00: mouth [place] DEINE #3) 00 every 4 Medical 300-30 mg (four) Branch tablet hours as needed for Pain (scale 4-6) or Pain (scale 7-10). Indication s: acute pain acetaminoph 2020-0 Yes 4647 1{tbl} Take 1 [facility] en-codeine 8-04 tablet by ity of (TYLENOL-CO 00:00: mouth [place] DEINE #3) 00 every 4 Medical 300-30 mg (four) Branch tablet hours as needed for Pain (scale 4-6) or Pain (scale 7-10). Indication s: acute pain acetaminoph 2020-0 Yes 4647 1{tbl} Take 1 Un hao en-codeine 8-04 tablet by ity of (TYLENOL-CO 00:00: mouth [place] DEINE #3) 00 every 4 Medical 300-30 mg (four) Branch tablet hours as needed for Pain (scale 4-6) or Pain (scale 7-10). Indication s: acute pain acetaminoph 2020-0 Yes 4647 1{tbl} Take 1 Un ha[facility] en-codeine 8-04 tablet by ity of (TYLENOL-CO 00:00: mouth [place] DEINE #3) 00 every 4 Medical 300-30 mg (four) Branch tablet hours as needed for Pain (scale 4-6) or Pain (scale 7-10). Indication s: acute pain acetaminoph 2020-0 Yes 4647 1{tbl} Take 1 Un [facility] en-codeine 8-04 tablet by ity of (TYLENOL-CO 00:00: mouth [place] DEINE #3) 00 every 4 Medical 300-30 mg (four) Branch tablet hours as needed for Pain (scale 4-6) or Pain (scale 7-10). Indication s: acute pain acetaminoph 2020-0 Yes 4647 1{tbl} Take 1 [facility] en-codeine 8-04 tablet by ity of (TYLENOL-CO 00:00: mouth [place] DEINE #3) 00 every 4 Medical 300-30 mg (four) Branch tablet hours as needed for Pain (scale 4-6) or Pain (scale 7-10). Indication s: acute pain acetaminoph 2020-0 Yes 4647 1{tbl} Take 1 Un ha[facility] en-codeine 8-04 tablet by ity of (TYLENOL-CO 00:00: mouth [place] DEINE #3) 00 every 4 Medical 300-30 mg (four) Branch tablet hours as needed for Pain (scale 4-6) or Pain (scale 7-10). Indication s: acute pain rivaroxaban 2020-0 2020- No 1481 10mg Take 1 Uni vers (XARELTO) 8-04 08-15 tablet by ity of tablet 00:00: 04:59 mouth [place] 00 :00 daily for Medical 10 days. Branch Indication s: deep vein thrombosis prevention in knee replacemen t rivaroxaban 2019- No 1481 10mg Take 1 Uni vers (XARELTO) 02-11 08-15 tablet by ity of tablet 00:00: 04:59 mouth [place] 00 :00 daily for Medical 10 days. Branch Indication s: deep vein thrombosis prevention in knee replacemen t rivaroxaban 2019- No 1481 10mg Take 1 Uni vers (XARELTO) 02-11 08-15 tablet by ity of tablet 00:00: 04:59 mouth [place] 00 :00 daily for Medical 10 days. Branch Indication s: deep vein thrombosis prevention in knee replacemen t rivaroxaban 2019- No 1481 10mg Take 1 Uni vers (XARELTO) 02-11 08-15 tablet by ity of tablet 00:00: 04:59 mouth [place] 00 :00 daily for Medical 10 days. Branch Indication s: deep vein thrombosis prevention in knee replacemen t rivaroxaban No 1481 10mg Take 1 Uni vers (XARELTO) 02-11-15 tablet by ity of tablet 00:00: 04:59 mouth [place] 00 :00 daily for Medical 10 days. Branch Indication s: deep vein thrombosis prevention in knee replacemen t rivaroxaban No 1481 10mg Take 1 Uni vers (XARELTO) 02-11-15 tablet by ity of tablet 00:00: 04:59 mouth [place] 00 :00 daily for Medical 10 days. Branch Indication s: deep vein thrombosis prevention in knee replacemen t valACYclovi Yes 500mg 500 mg, Un hao r (VALTREX) 02-10 Oral, ity of tablet 500 22:26: BIDPRN, [place] mg 17 Starting Medical 02/11/20 Branch at 1726, Until Discontinu ed, JEAN-PIERRE, Surgery/Pr ocedure bupivacaine 2019- No ONCE INTRA Univers (preserv 02-10 PROCEDURE, ity of free) 0.5% 18:15: 19:37 [place] (SENSORCAIN 00 :00 02/11/20 Me dical E MPF) 0.5 at 1315, Branc h % (5 mg/mL) Until Mon injection 8/3/20 at 1437, Routine, Intra-op lactated 2020-0 Yes 1000mL at 75 Univer s ringers IV 02-10 mL/hr, ity of infusion 17:45: 1,000 mL, [place] 1,000 mL 00 IV Medical Infusion, Branch CONTINUOUS , Starting Tue02/11/20 at 1245, Until Discontinu ed, Routine, PACU sugammadex 2020-0 2020- No IV Push, [facility] (BRIDION) 02-10 ONCE INTRA ity of injection 16:45: 17:26 PROCEDURE, [place] 00 :21 Starting Medical 02/11/20 Branch at 1145, Until Tue02/11/20 at 1226, Routine, Intra-op ketorolac 2020-0 2020- No ONCE INTRA U nivers (TORADOL) 02-10 PROCEDURE, ity of injection 16:43: 17:26 Starting [place] 00 :21 02/11/20 Medical at 1143, Branch Until Tue02/11/20 at 1226, Routine, Intra-op morpHINE 30 2020-0 Yes Univer s mg/30 mL 02-10 ity of (fixed 15:34: [place] dose) 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 36 Medical injection Branch PHENYLephri 2020-0 2020- No ONCE INTRA Univers ne 1000 02-10 PROCEDURE, ity o f mcg/10 mL 15:14: 17:26 Starting [place] in 0.9% 00 :21 Tue02/11/20 Medica l NaCl at 1014, Branch syringe Until Tue02/11/20 at 1226, Routine, Intra-op dexamethaso 2020-0 2020- No IV Push, U nivers ne 02-10 ONCE INTRA ity of (DECADRON 15:03: 17:26 PROCEDURE, [place] PHOSPHATE) 00 :21 Starting Medic al injection 02/11/20 Bran ch at 1003, Until Tue02/11/20 at 1226, Routine, Intra-op ceFAZolin 2020-0 2020- No ONCE INTRA U nivers (ANCEF) 02-10 PROCEDURE, ity o f injection 14:46: 17:26 Starting [place] as 00 :21 02/11/20 Medical at 0946, Branch Until Tue02/11/20 at 1226, JEAN-PIERRE, Intra-op tranexamic 2020-0 2020- No CONTINUOUS Univers acid 02-10 PRN, ity of (CYKLOKAPRO 14:44: 17:26 [place] N) 1,000 mg 00 :21 02/11/20 Me dical in NaCl at 0944, Branch 0.9% (NS) Until Mon 250 mL 02/11/20 at infusion 1226, Routine, Intra-op rocuronium 2020-0 2020- No IV Push, Un hao (ZEMURON) 02-10 ONCE INTRA ity of injection 14:41: 17:26 PROCEDURE, [place] 00 :21 Starting Medical 02/11/20 Branch at 0941, Until 02/11/20 at 1226, Routine, Intra-op propofol IV 2020-0 2020- No Intravenou Univers infusion 02-10 s, ONCE ity of 14:41: 17:26 INTRA [place] 00 :21 PROCEDURE, Medical Starting Branch 02/11/20 at 0941, Until 02/11/20 at 1226, Routine, Intra-op FENTanyl PF 2020-0 2020- No Intravenou Univers (SUBLIMAZE 02-10 s, ONCE ity o f (PF)) 14:41: 17:26 INTRA [place] injection 00 :21 PROCEDURE, Medi jose Starting Branch 02/11/20 at 0941, Until 02/11/20 at 1226, Routine, Intra-op lidocaine 2020-0 2020- No ONCE INTRA U nivers 1% 02-10 PROCEDURE, ity of (XYLOCAINE) 14:38: 17:26 [place] 100 mg/10 00 :21 02/11/20 Medi jose mL (1 %) at 0938, Branch injection Until 02/11/20 at 1226, Routine, Intra-op naloxone 2020-0 Yes .4mg 0.4 mg, Univer s (NARCAN) 02-10 Slow IV ity of injection 14:34: Push, [place] 0.4 mg 33 SEE-INSTRU Medical CTIONS, Branch Starting 02/11/20 at 0934, Until Discontinu ed, Routine ondansetron 2020-0 Yes 4mg 4 mg, Slow Univers (ZOFRAN 02-10 IV Push, ity of (PF)) 14:33: Q6HPRN, [place] injection 4 54 Starting Medi jose mg [facility] 02/11/20 Branch at 0933, Until Discontinu ed, Routine, Nausea and Vomiting (N/V) ondansetron 2020-0 Yes 4mg 4 mg, Slow Univers (ZOFRAN 02-10 IV Push, ity of (PF)) 14:33: Q6HPRN, [place] injection 4 54 Starting Medi jose mg [facility] 02/11/20 Branch at 0933, Until Discontinu ed, Routine, Nausea and Vomiting (N/V) lactated 2020-0 2020- No IV Univers ringers IV 02-10 Infusion, ity of infusion 14:29: 17:26 CONTINUOUS [place] 00 :21 PRN, Medical Starting [facility] 02/11/20 at 0929, Until [facility] 02/11/20 at 1226, Routine, Intra-op midazolam 2019-0 2020- No IV Push, Uni vers (VERSED) 02-10 ONCE INTRA ity of injection 14:29: 17:26 PROCEDURE, [place] 00 :21 Starting [facility] 02/11/20 Branch at 0929, Until [facility] 02/11/20 at 1226, Routine, Intra-op gabapentin 2020-0 2020- No 300mg 300 mg, Un hao (NEURONTIN) 02-10 Oral, ity of capsule 300 13:45: 14:21 ONCE, 1 [place] mg 00 :00 dose, [facility] 02/11/20 at Branch 0845, Routine, DSU Pre-op celecoxib 2020-0 2020- No 400mg 400 mg, Uni vers (CELEBREX) 02-10 Oral, ity of capsule 400 13:45: 14:20 ONCE, 1 [place] mg 00 :00 dose, [facility] 02/11/20 at Branch 0845, Routine, DSU Pre-op lactated 2020-0 2020- No 1000mL at 20 Unive rs ringers IV 02-10 mL/hr, ity of infusion 13:45: 14:23 1,000 mL, [place] 1,000 mL 00 :00 IV Medical Infusion, Branch ONCE, 1 dose, [facility] 02/11/20 at 0845, Routine, DSU Pre-op ceFAZolin 2019-0 2020- No 2g Univers in dextrose 02-10 ity of (iso-os) 05:00: 16:59 [place] (ANCEF) 2 00 :00 Medical gram/100 mL Branch Piggyback 2 g oxyCODONE-a 2019-0 2020- No 2{tbl} Uni vers cetaminophe 02-10 ity of n 05:00: 16:59 [place] (PERCOCET) 00 :00 Medical 5-325 mg Branch per tablet 2 tablet DICLOFENAC 2019-0 Yes [id number] TAKE 1 Univers 75 mg EC 9-18 9102 TABLET BY ity of tablet 00:00: MOUTH [place] 00 TWICE A Medical DAY WITH Branch MEALS DICLOFENAC 2019-0 Yes [id number] TAKE 1 Univers 75 mg EC 9-18 9102 TABLET BY ity of tablet 00:00: MOUTH [place] 00 TWICE A Medical DAY WITH Branch MEALS DICLOFENAC 2019-0 Yes [id number] TAKE 1 [facility] 75 mg EC 9-18 9102 TABLET BY ity of tablet 00:00: MOUTH [place] 00 TWICE A Medical DAY WITH Branch MEALS DICLOFENAC 2019-0 Yes [id number] TAKE 1 [facility] 75 mg EC 9-18 9102 TABLET BY ity of tablet 00:00: MOUTH [place] 00 TWICE A Medical DAY WITH Branch MEALS DICLOFENAC 2019-0 Yes [id number] TAKE 1 [facility] 75 mg EC 9-18 9102 TABLET BY ity of tablet 00:00: MOUTH [place] 00 TWICE A Medical DAY WITH Branch MEALS DICLOFENAC 2019-0 Yes [id number] TAKE 1 [facility] 75 mg EC 9-18 9102 TABLET BY ity of tablet 00:00: MOUTH [place] 00 TWICE A Medical DAY WITH Branch MEALS DICLOFENAC 2019-0 Yes [id number] TAKE 1 [facility] 75 mg EC 9-18 9102 TABLET BY ity of tablet 00:00: MOUTH [place] 00 TWICE A Medical DAY WITH Branch MEALS DICLOFENAC 2019-0 Yes [id number] TAKE 1 [facility] 75 mg EC 9-18 9102 TABLET BY ity of tablet 00:00: MOUTH [place] 00 TWICE A Medical DAY WITH Branch MEALS DICLOFENAC 2019-0 Yes [id number] TAKE 1 [facility] 75 mg EC 9-18 9102 TABLET BY ity of tablet 00:00: MOUTH [place] 00 TWICE A Medical DAY WITH Branch MEALS DICLOFENAC 2019-0 Yes [id number] TAKE 1 Univers 75 mg EC 9-18 9102 TABLET BY ity of tablet 00:00: MOUTH [place] 00 TWICE A Medical DAY WITH Branch MEALS DICLOFENAC 2019-0 2020- No [id number] TAKE 1 Univers 75 mg EC 918 08-04 9102 TABLET BY ity o f tablet 00:00: 00:00 MOUTH [place] 00 :00 TWICE A Medical DAY WITH Branch MEALS diclofenac 2019-0 Yes [id number] 75mg Take 1 Univers 75 mg EC 02-05 9102 tablet by ity of tablet 00:00: mouth 2 [place] 00 (two) Medical times Branch daily with meals. methylPREDN 2019- Yes [id number] Take by [facility] 02-05 9102 mouth ity of (MEDROL, 00:00: SEE-INSTRU [place] VICKY,) 4 mg 00 CTIONS. Medica l tablets follow Branch package directions methylPREDN 2019- Yes [id number] Take by [place] [facility] 02-05 9102 mouth ity of (MEDROL, 00:00: SEE-INSTRU [place] VICKY,) 4 mg 00 CTIONS. Medica l tablets follow Branch package directions methylPREDN 2019- Yes [id number] Take by [facility] 02-05 9102 mouth ity of (MEDROL, 00:00: SEE-INSTRU [place] VICKY,) 4 mg 00 CTIONS. Medica l tablets follow Branch package directions methylPREDN 2018-0 Yes [id number] Take by [facility] 02-05 9102 mouth ity of (MEDROL, 00:00: SEE-INSTRU [place] VICKY,) 4 mg 00 CTIONS. Medica l tablets follow Branch package directions methylPREDN 2019-0 Yes [id number] Take by [facility] 02-05 9102 mouth ity of (MEDROL, 00:00: SEE-INSTRU [place] VICKY,) 4 mg 00 CTIONS. Medica l tablets follow Branch package directions methylPREDN 2019-0 Yes [id number] Take by [facility] 02-05 9102 mouth ity of (MEDROL, 00:00: SEE-INSTRU [place] VICKY,) 4 mg 00 CTIONS. Medica l tablets follow Branch package directions methylPREDN 2019-0 Yes [id number] Take by [place] [facility] 02-05 9102 mouth ity of (MEDROL, 00:00: SEE-INSTRU [place] VICKY,) 4 mg 00 CTIONS. Medica l tablets follow Branch package directions methylPREDN 2019-0 Yes [id number] Take by [place] [facility] 02-05 9102 mouth ity of (MEDROL, 00:00: SEE-INSTRU [place] VICKY,) 4 mg 00 CTIONS. Medica l tablets follow Branch package directions methylPREDN Yes [id number] Take by [facility] 02-05 9102 mouth ity of (MEDROL, 00:00: SEE-INSTRU [place] VICKY,) 4 mg 00 CTIONS. Medica l tablets follow Branch package directions methylPREDN Yes [id number] Take by [facility] 02-05 9102 mouth ity of (MEDROL, 00:00: SEE-INSTRU [place] VICKY,) 4 mg 00 CTIONS. Medica l tablets follow Branch package directions methylPREDN Yes [id number] Take by [facility] 02-05 9102 mouth ity of (MEDROL, 00:00: SEE-INSTRU [place] VICKY,) 4 mg 00 CTIONS. Medica l tablets follow Branch package directions methylPREDN 2020- No [id number] Take by [place] [facility] 02-05 0804 9102 mouth ity of (MEDROL, 00:00: 00:00 SEE-INSTRU [place] VICKY,) 4 mg 00 :00 CTIONS. Medica l tablets follow Branch package directions diclofenac 2019- No [id number] 75mg Take 1 Univers 75 mg EC 02-05 9102 tablet by ity o f tablet 00:00: 00:00 mouth 2 [place] 00 :00 (two) Medical times Branch daily with meals. PARoxetine Yes TAKE 1 Unive rs mesylate,me 7-11 CAPSULE BY it y of nop.sym, 00:00: MOUTH [place] 7.5 mg 00 EVERYDAY Medical capsule AT BEDTIME Branch PARoxetine 0 Yes TAKE 1 Unive rs mesylate,me 7-11 CAPSULE BY it y of nop.sym, 00:00: MOUTH [place] 7.5 mg 00 EVERYDAY Medical capsule AT BEDTIME Branch PARoxetine 2019-0 Yes TAKE 1 Unive rs mesylate,me 7-11 CAPSULE BY it y of nop.sym, 00:00: MOUTH [place] 7.5 mg 00 EVERYDAY Medical capsule AT BEDTIME Branch PARoxetine 2018-0 Yes TAKE 1 Unive rs mesylate,me 7-11 CAPSULE BY it y of nop.sym, 00:00: MOUTH [place] 7.5 mg 00 EVERYDAY Medical capsule AT BEDTIME Branch PARoxetine 2019-0 Yes TAKE 1 Unive rs mesylate,me 7-11 CAPSULE BY it y of nop.sym, 00:00: MOUTH [place] 7.5 mg 00 EVERYDAY Medical capsule AT BEDTIME Branch PARoxetine 2019-0 Yes TAKE 1 Unive rs mesylate,me 7-11 CAPSULE BY it y of nop.sym, 00:00: MOUTH [place] 7.5 mg 00 EVERYDAY Medical capsule AT BEDTIME Branch PARoxetine 2019-0 Yes TAKE 1 Unive rs mesylate,me 7-11 CAPSULE BY it y of nop.sym, 00:00: MOUTH [place] 7.5 mg 00 EVERYDAY Medical capsule AT BEDTIME Branch PARoxetine 2019-0 Yes TAKE 1 Unive rs mesylate,me 7-11 CAPSULE BY it y of nop.sym, 00:00: MOUTH [place] 7.5 mg 00 EVERYDAY Medical capsule AT BEDTIME Branch PARoxetine 2019-0 Yes TAKE 1 Unive rs mesylate,me 7-11 CAPSULE BY it y of nop.sym, 00:00: MOUTH [place] 7.5 mg 00 EVERYDAY Medical capsule AT BEDTIME Branch PARoxetine 2019-0 Yes TAKE 1 Unive rs mesylate,me 7-11 CAPSULE BY it y of nop.sym, 00:00: MOUTH [place] 7.5 mg 00 EVERYDAY Medical capsule AT BEDTIME Branch PARoxetine 2019-0 Yes TAKE 1 Unive rs mesylate,me 7-11 CAPSULE BY it y of nop.sym, 00:00: MOUTH [place] 7.5 mg 00 EVERYDAY Medical capsule AT BEDTIME Branch PARoxetine 2019-0 Yes TAKE 1 Unive rs mesylate,me 7-11 CAPSULE BY it y of nop.sym, 00:00: MOUTH [place] 7.5 mg 00 EVERYDAY Medical capsule AT BEDTIME Branch PARoxetine 2019-0 Yes TAKE 1 Unive rs mesylate,me 7-11 CAPSULE BY it y of nop.sym, 00:00: MOUTH [place] 7.5 mg 00 EVERYDAY Medical capsule AT BEDTIME Branch PARoxetine 2019-0 Yes TAKE 1 Unive rs mesylate,me 7-11 CAPSULE BY it y of nop.sym, 00:00: MOUTH [place] 7.5 mg 00 EVERYDAY Medical capsule AT BEDTIME Branch PARoxetine 2019-0 Yes TAKE 1 Unive rs mesylate,me 7-11 CAPSULE BY it y of nop.sym, 00:00: MOUTH [place] 7.5 mg 00 EVERYDAY Medical capsule AT BEDTIME Branch PARoxetine 2019-0 Yes TAKE 1 Unive rs mesylate,me 7-11 CAPSULE BY it y of nop.sym, 00:00: MOUTH [place] 7.5 mg 00 EVERYDAY Medical capsule AT BEDTIME Branch PARoxetine 2019-0 Yes TAKE 1 Unive rs mesylate,me 7-11 CAPSULE BY it y of nop.sym, 00:00: MOUTH [place] 7.5 mg 00 EVERYDAY Medical capsule AT BEDTIME Branch PARoxetine 2019-0 Yes TAKE 1 Unive rs mesylate,me 7-11 CAPSULE BY it y of nop.sym, 00:00: MOUTH [place] 7.5 mg 00 EVERYDAY Medical capsule AT BEDTIME Branch PARoxetine 2019-0 Yes TAKE 1 Unive rs mesylate,me 7-11 CAPSULE BY it y of nop.sym, 00:00: MOUTH [place] 7.5 mg 00 EVERYDAY Medical capsule AT BEDTIME Branch PARoxetine 2019-0 Yes TAKE 1 Unive rs mesylate,me 7-11 CAPSULE BY it y of nop.sym, 00:00: MOUTH [place] 7.5 mg 00 EVERYDAY Medical capsule AT BEDTIME Branch PARoxetine 2019-0 Yes TAKE 1 Unive rs mesylate,me 7-11 CAPSULE BY it y of nop.sym, 00:00: MOUTH [place] 7.5 mg 00 EVERYDAY Medical capsule AT BEDTIME Branch PARoxetine 2019-0 Yes TAKE 1 Unive rs mesylate,me 7-11 CAPSULE BY it y of nop.sym, 00:00: MOUTH [place] 7.5 mg 00 EVERYDAY Medical capsule AT BEDTIME Branch PARoxetine 2019-0 Yes TAKE 1 Unive rs mesylate,me 7-11 CAPSULE BY it y of nop.sym, 00:00: MOUTH [place] 7.5 mg 00 EVERYDAY Medical capsule AT BEDTIME Branch PARoxetine 2019-0 Yes TAKE 1 Unive rs mesylate,me 7-11 CAPSULE BY it y of nop.sym, 00:00: MOUTH [place] 7.5 mg 00 EVERYDAY Medical capsule AT BEDTIME Branch PARoxetine 2019-0 Yes TAKE 1 Unive rs mesylate,me 7-11 CAPSULE BY it y of nop.sym, 00:00: MOUTH [place] 7.5 mg 00 EVERYDAY Medical capsule AT BEDTIME Branch PARoxetine 2019-0 Yes TAKE 1 Unive rs mesylate,me 7-11 CAPSULE BY it y of nop.sym, 00:00: MOUTH [place] 7.5 mg 00 EVERYDAY Medical capsule AT BEDTIME Branch PARoxetine 2019-0 Yes TAKE 1 Unive rs mesylate,me 7-11 CAPSULE BY it y of nop.sym, 00:00: MOUTH [place] 7.5 mg 00 EVERYDAY Medical capsule AT BEDTIME Branch PARoxetine 2019-0 Yes TAKE 1 Unive rs mesylate,me 7-11 CAPSULE BY it y of nop.sym, 00:00: MOUTH [place] 7.5 mg 00 EVERYDAY Medical capsule AT BEDTIME Branch PARoxetine 2019-0 Yes TAKE 1 Unive rs mesylate,me 7-11 CAPSULE BY it y of nop.sym, 00:00: MOUTH [place] 7.5 mg 00 EVERYDAY Medical capsule AT BEDTIME Branch PARoxetine 2019-0 Yes TAKE 1 Unive rs mesylate,me 7-11 CAPSULE BY it y of nop.sym, 00:00: MOUTH [place] 7.5 mg 00 EVERYDAY Medical capsule AT BEDTIME Branch PARoxetine 2019-0 Yes TAKE 1 Unive rs mesylate,me 7-11 CAPSULE BY it y of nop.sym, 00:00: MOUTH [place] 7.5 mg 00 EVERYDAY Medical capsule AT BEDTIME Branch PARoxetine 20190 Yes TAKE 1 Unive rs mesylate,me 7-11 CAPSULE BY it y of nop.sym, 00:00: MOUTH [place] 7.5 mg 00 EVERYDAY Medical capsule AT BEDTIME Branch PARoxetine 2019-0 Yes TAKE 1 Unive rs mesylate,me 7-11 CAPSULE BY it y of nop.sym, 00:00: MOUTH [place] 7.5 mg 00 EVERYDAY Medical capsule AT BEDTIME Branch PARoxetine 2019-0 Yes TAKE 1 Unive rs mesylate,me 7-11 CAPSULE BY it y of nop.sym, 00:00: MOUTH [place] 7.5 mg 00 EVERYDAY Medical capsule AT BEDTIME Branch PARoxetine 2019-0 Yes TAKE 1 Unive rs mesylate,me 7-11 CAPSULE BY it y of nop.sym, 00:00: MOUTH [place] 7.5 mg 00 EVERYDAY Medical capsule AT BEDTIME Branch PARoxetine 2019-0 Yes TAKE 1 Unive rs mesylate,me 7-11 CAPSULE BY it y of nop.sym, 00:00: MOUTH [place] 7.5 mg 00 EVERYDAY Medical capsule AT BEDTIME Branch PARoxetine 2019-0 Yes TAKE 1 Unive rs mesylate,me 7-11 CAPSULE BY it y of nop.sym, 00:00: MOUTH [place] 7.5 mg 00 EVERYDAY Medical capsule AT BEDTIME Branch terbinafine 2014-07 Yes 250mg Take 1 Tab Univers HCl 0-13 by mouth ity of (LAMISIL) 00:00: daily. [place] 250 mg 00 Medical tablet Branch terbinafine 2014-07 Yes 250mg Take 1 Tab Univers HCl 0-13 by mouth ity of (LAMISIL) 00:00: daily. [place] 250 mg 00 Medical tablet Branch terbinafine 2014-07 Yes 250mg Take 1 Tab Univers HCl 0-13 by mouth ity of (LAMISIL) 00:00: daily. [place] 250 mg 00 Medical tablet Branch terbinafine 2014-07 Yes 250mg Take 1 Tab Univers HCl 0-13 by mouth ity of (LAMISIL) 00:00: daily. [place] 250 mg 00 Medical tablet Branch terbinafine 2014-07 Yes 250mg Take 1 Tab Univers HCl 0-13 by mouth ity of (LAMISIL) 00:00: daily. [place] 250 mg 00 Medical tablet Branch terbinafine 2014-07 Yes 250mg Take 1 Tab Univers HCl 0-13 by mouth ity of (LAMISIL) 00:00: daily. [place] 250 mg 00 Medical tablet Branch terbinafine 2014-07 Yes 250mg Take 1 Tab Univers HCl 0-13 by mouth ity of (LAMISIL) 00:00: daily. [place] 250 mg 00 Medical tablet Branch terbinafine 2014-07 Yes 250mg Take 1 Tab Univers HCl 0-13 by mouth ity of (LAMISIL) 00:00: daily. [place] 250 mg 00 Medical tablet Branch terbinafine 2014-07 Yes 250mg Take 1 Tab Univers HCl 0-13 by mouth ity of (LAMISIL) 00:00: daily. [place] 250 mg 00 Medical tablet Branch terbinafine 2014-07 Yes 250mg Take 1 Tab Univers HCl 0-13 by mouth ity of (LAMISIL) 00:00: daily. [place] 250 mg 00 Medical tablet Branch terbinafine 2014-07 Yes 250mg Take 1 Tab Univers HCl 0-13 by mouth ity of (LAMISIL) 00:00: daily. [place] 250 mg 00 Medical tablet Branch terbinafine 2014-07 Yes 250mg Take 1 Tab Univers HCl 0-13 by mouth ity of (LAMISIL) 00:00: daily. [place] 250 mg 00 Medical tablet Branch terbinafine 2014-07 Yes 250mg Take 1 Tab Univers HCl 0-13 by mouth ity of (LAMISIL) 00:00: daily. [place] 250 mg 00 Medical tablet Branch terbinafine 2014-07 Yes 250mg Take 1 Tab Univers HCl 0-13 by mouth ity of (LAMISIL) 00:00: daily. [place] 250 mg 00 Medical tablet Branch terbinafine 2014-07 Yes 250mg Take 1 Tab Univers HCl 0-13 by mouth ity of (LAMISIL) 00:00: daily. [place] 250 mg 00 Medical tablet Branch terbinafine 2014-07 Yes 250mg Take 1 Tab Univers HCl 0-13 by mouth ity of (LAMISIL) 00:00: daily. [place] 250 mg 00 Medical tablet Branch terbinafine 2014-07 Yes 250mg Take 1 Tab Univers HCl 0-13 by mouth ity of (LAMISIL) 00:00: daily. [place] 250 mg 00 Medical tablet Branch terbinafine 2014-07 Yes 250mg Take 1 Tab Univers HCl 0-13 by mouth ity of (LAMISIL) 00:00: daily. [place] 250 mg 00 Medical tablet Branch terbinafine 2014-07 Yes 250mg Take 1 Tab Univers HCl 0-13 by mouth ity of (LAMISIL) 00:00: daily. [place] 250 mg 00 Medical tablet Branch terbinafine 2014-07 Yes 250mg Take 1 Tab Univers HCl 0-13 by mouth ity of (LAMISIL) 00:00: daily. [place] 250 mg 00 Medical tablet Branch terbinafine 2014-07 Yes 250mg Take 1 Tab Univers HCl 0-13 by mouth ity of (LAMISIL) 00:00: daily. [place] 250 mg 00 Medical tablet Branch terbinafine 2014-07 Yes 250mg Take 1 Tab Univers HCl 0-13 by mouth ity of (LAMISIL) 00:00: daily. [place] 250 mg 00 Medical tablet Branch terbinafine 2014-07 Yes 250mg Take 1 Tab Univers HCl 0-13 by mouth ity of (LAMISIL) 00:00: daily. [place] 250 mg 00 Medical tablet Branch terbinafine 2014-07 Yes 250mg Take 1 Tab Univers HCl 0-13 by mouth ity of (LAMISIL) 00:00: daily. [place] 250 mg 00 Medical tablet Branch terbinafine 2014-07 Yes 250mg Take 1 Tab [facility] HCl 0-13 by mouth ity of (LAMISIL) 00:00: daily. [place] 250 mg 00 Medical tablet Branch terbinafine 2014-07 Yes 250mg Take 1 Tab Univers HCl 0-13 by mouth ity of (LAMISIL) 00:00: daily. [place] 250 mg 00 Medical tablet Branch terbinafine 2014-07 Yes 250mg Take 1 Tab Univers HCl 0-13 by mouth ity of (LAMISIL) 00:00: daily. [place] 250 mg 00 Medical tablet Branch terbinafine 2014-07 Yes 250mg Take 1 Tab [facility] HCl 0-13 by mouth ity of (LAMISIL) 00:00: daily. [place] 250 mg 00 Medical tablet Branch terbinafine 2014-07 Yes 250mg Take 1 Tab Univers HCl 0-13 by mouth ity of (LAMISIL) 00:00: daily. [place] 250 mg 00 Medical tablet Branch terbinafine 2014-07 Yes 250mg Take 1 Tab Univers HCl 0-13 by mouth ity of (LAMISIL) 00:00: daily. [place] 250 mg 00 Medical tablet Branch terbinafine 2014-07 Yes 250mg Take 1 Tab Univers HCl 0-13 by mouth ity of (LAMISIL) 00:00: daily. [place] 250 mg 00 Medical tablet Branch terbinafine 2014-07 Yes 250mg Take 1 Tab Univers HCl 0-13 by mouth ity of (LAMISIL) 00:00: daily. [place] 250 mg 00 Medical tablet Branch terbinafine 2014-07 Yes 250mg Take 1 Tab Univers HCl 0-13 by mouth ity of (LAMISIL) 00:00: daily. [place] 250 mg 00 Medical tablet Branch terbinafine 2014-07 Yes 250mg Take 1 Tab Univers HCl 0-13 by mouth ity of (LAMISIL) 00:00: daily. [place] 250 mg 00 Medical tablet Branch terbinafine 2014-07 Yes 250mg Take 1 Tab Univers HCl 0-13 by mouth ity of (LAMISIL) 00:00: daily. [place] 250 mg 00 Medical tablet Branch terbinafine 2014-07 Yes 250mg Take 1 Tab Univers HCl 0-13 by mouth ity of (LAMISIL) 00:00: daily. [place] 250 mg 00 Medical tablet Branch terbinafine 2014-07 Yes 250mg Take 1 Tab Univers HCl 0-13 by mouth ity of (LAMISIL) 00:00: daily. [place] 250 mg 00 Medical tablet Branch hydrochloro 2014-0 Yes as needed. Univers thiazide 9-15 ity of (ESIDRIX) 00:00: [place] 25 mg 00 Medical tablet Branch valACYclovi 2014-0 Yes as needed. Univers r (VALTREX) 9-15 ity of 500 mg 00:00: [place] tablet 00 Medical Branch hydrochloro 2014-0 Yes as needed. Univers thiazide 9-15 ity of (ESIDRIX) 00:00: [place] 25 mg 00 Medical tablet Branch valACYclovi 2014-0 Yes as needed. Univers r (VALTREX) 9-15 ity of 500 mg 00:00: [place] tablet 00 Medical Branch hydrochloro 2014-0 Yes as needed. Univers thiazide 9-15 ity of (ESIDRIX) 00:00: [place] 25 mg 00 Medical tablet Branch valACYclovi 2014-0 Yes as needed. Univers r (VALTREX) 9-15 ity of 500 mg 00:00: [place] tablet 00 Medical Branch hydrochloro 0 Yes as needed. Univers thiazide 9-15 ity of (ESIDRIX) 00:00: [place] 25 mg 00 Medical tablet Branch valACYclovi 2014-0 Yes as needed. Univers r (VALTREX) 9-15 ity of 500 mg 00:00: [place] tablet 00 Medical Branch hydrochloro 2014-0 Yes as needed. Univers thiazide 9-15 ity of (ESIDRIX) 00:00: [place] 25 mg 00 Medical tablet Branch valACYclovi 2014-0 Yes as needed. Univers r (VALTREX) 9-15 ity of 500 mg 00:00: [place] tablet 00 Medical Branch hydrochloro 2014-0 Yes as needed. Univers thiazide 9-15 ity of (ESIDRIX) 00:00: [place] 25 mg 00 Medical tablet Branch valACYclovi 2014-0 Yes as needed. Univers r (VALTREX) 9-15 ity of 500 mg 00:00: [place] tablet 00 Medical Branch hydrochloro 2014-0 Yes as needed. Univers thiazide 9-15 ity of (ESIDRIX) 00:00: [place] 25 mg 00 Medical tablet Branch valACYclovi 2014-0 Yes as needed. Univers r (VALTREX) 9-15 ity of 500 mg 00:00: [place] tablet 00 Medical Branch hydrochloro 2014-0 Yes as needed. Univers thiazide 9-15 ity of (ESIDRIX) 00:00: [place] 25 mg 00 Medical tablet Branch valACYclovi 2014-0 Yes as needed. Univers r (VALTREX) 9-15 ity of 500 mg 00:00: [place] tablet 00 Medical Branch hydrochloro 2014- Yes as needed. Univers thiazide 9-15 ity of (ESIDRIX) 00:00: [place] 25 mg 00 Medical tablet Branch valACYclovi 2014-0 Yes as needed. Univers r (VALTREX) 9-15 ity of 500 mg 00:00: [place] tablet 00 Medical Branch hydrochloro Yes as needed. Univers thiazide 9-15 ity of (ESIDRIX) 00:00: [place] 25 mg 00 Medical tablet Branch valACYclovi Yes as needed. Univers r (VALTREX) 9-15 ity of 500 mg 00:00: [place] tablet 00 Medical Branch hydrochloro Yes as needed. Univers thiazide 9-15 ity of (ESIDRIX) 00:00: [place] 25 mg 00 Medical tablet Branch valACYclovi Yes as needed. Univers r (VALTREX) 9-15 ity of 500 mg 00:00: [place] tablet 00 Medical Branch hydrochloro Yes as needed. Univers thiazide 9-15 ity of (ESIDRIX) 00:00: [place] 25 mg 00 Medical tablet Branch valACYclovi Yes as needed. Univers r (VALTREX) 9-15 ity of 500 mg 00:00: [place] tablet 00 Medical Branch hydrochloro Yes as needed. Univers thiazide 9-15 ity of (ESIDRIX) 00:00: [place] 25 mg 00 Medical tablet Branch valACYclovi 2014- Yes as needed. Univers r (VALTREX) 9-15 ity of 500 mg 00:00: [place] tablet 00 Medical Branch hydrochloro Yes as needed. Univers thiazide 9-15 ity of (ESIDRIX) 00:00: [place] 25 mg 00 Medical tablet Branch valACYclovi 2014- Yes as needed. Univers r (VALTREX) 9-15 ity of 500 mg 00:00: [place] tablet 00 Medical Branch hydrochloro Yes Univer s thiazide 9-15 ity of (ESIDRIX) 00:00: [place] 25 mg 00 Medical tablet Branch valACYclovi Yes Univer s r (VALTREX) 9-15 ity of 500 mg 00:00: [place] tablet 00 Medical Branch hydrochloro 2014-0 Yes as needed. Univers thiazide 9-15 ity of (ESIDRIX) 00:00: [place] 25 mg 00 Medical tablet Branch valACYclovi 2014-0 Yes as needed. Univers r (VALTREX) 9-15 ity of 500 mg 00:00: [place] tablet 00 Medical Branch hydrochloro 0 Yes Univer s thiazide 9-15 ity of (ESIDRIX) 00:00: [place] 25 mg 00 Medical tablet Branch valACYclovi Yes Univer s r (VALTREX) 9-15 ity of 500 mg 00:00: [place] tablet 00 Medical Branch hydrochloro Yes as needed. Univers thiazide 9-15 ity of (ESIDRIX) 00:00: [place] 25 mg 00 Medical tablet Branch valACYclovi 0 Yes as needed. Univers r (VALTREX) 9-15 ity of 500 mg 00:00: [place] tablet 00 Medical Branch hydrochloro Yes as needed. Univers thiazide 9-15 ity of (ESIDRIX) 00:00: [place] 25 mg 00 Medical tablet Branch valACYclovi Yes as needed. Univers r (VALTREX) 9-15 ity of 500 mg 00:00: [place] tablet 00 Medical Branch hydrochloro Yes as needed. Univers thiazide 9-15 ity of (ESIDRIX) 00:00: [place] 25 mg 00 Medical tablet Branch valACYclovi Yes as needed. Univers r (VALTREX) 9-15 ity of 500 mg 00:00: [place] tablet 00 Medical Branch hydrochloro Yes as needed. Univers thiazide 9-15 ity of (ESIDRIX) 00:00: [place] 25 mg 00 Medical tablet Branch valACYclovi Yes as needed. Univers r (VALTREX) 9-15 ity of 500 mg 00:00: [place] tablet 00 Medical Branch hydrochloro 2014-0 Yes as needed. Univers thiazide 9-15 ity of (ESIDRIX) 00:00: [place] 25 mg 00 Medical tablet Branch valACYclovi 2014- Yes as needed. Univers r (VALTREX) 9-15 ity of 500 mg 00:00: [place] tablet 00 Medical Branch hydrochloro 2014-0 Yes as needed. Univers thiazide 9-15 ity of (ESIDRIX) 00:00: [place] 25 mg 00 Medical tablet Branch valACYclovi Yes as needed. Univers r (VALTREX) 9-15 ity of 500 mg 00:00: [place] tablet 00 Medical Branch hydrochloro Yes Univer s thiazide 9-15 ity of (ESIDRIX) 00:00: [place] 25 mg 00 Medical tablet Branch hydrochloro Yes as needed. Univers thiazide 9-15 ity of (ESIDRIX) 00:00: [place] 25 mg 00 Medical tablet Branch valACYclovi Yes as needed. Univers r (VALTREX) 9-15 ity of 500 mg 00:00: [place] tablet 00 Medical Branch valACYclovi Yes Univer s r (VALTREX) 9-15 ity of 500 mg 00:00: [place] tablet 00 Medical Branch hydrochloro Yes as needed. Univers thiazide 9-15 ity of (ESIDRIX) 00:00: [place] 25 mg 00 Medical tablet Branch valACYclovi Yes as needed. Univers r (VALTREX) 9-15 ity of 500 mg 00:00: [place] tablet 00 Medical Branch hydrochloro Yes as needed. Univers thiazide 9-15 ity of (ESIDRIX) 00:00: [place] 25 mg 00 Medical tablet Branch valACYclovi Yes as needed. Univers r (VALTREX) 9-15 ity of 500 mg 00:00: [place] tablet 00 Medical Branch hydrochloro Yes as needed. Univers thiazide 9-15 ity of (ESIDRIX) 00:00: [place] 25 mg 00 Medical tablet Branch valACYclovi Yes as needed. Univers r (VALTREX) 9-15 ity of 500 mg 00:00: [place] tablet 00 Medical Branch hydrochloro Yes as needed. Univers thiazide 9-15 ity of (ESIDRIX) 00:00: [place] 25 mg 00 Medical tablet Branch valACYclovi Yes as needed. Univers r (VALTREX) 9-15 ity of 500 mg 00:00: [place] tablet 00 Medical Branch hydrochloro Yes Univer s thiazide 9-15 ity of (ESIDRIX) 00:00: [place] 25 mg 00 Medical tablet Branch valACYclovi Yes Univer s r (VALTREX) 9-15 ity of 500 mg 00:00: [place] tablet 00 Medical Branch hydrochloro Yes Univer s thiazide 9-15 ity of (ESIDRIX) 00:00: [place] 25 mg 00 Medical tablet Branch valACYclovi Yes Univer s r (VALTREX) 9-15 ity of 500 mg 00:00: [place] tablet 00 Medical Branch hydrochloro Yes Univer s thiazide 9-15 ity of (ESIDRIX) 00:00: [place] 25 mg 00 Medical tablet Branch valACYclovi Yes Univer s r (VALTREX) 9-15 ity of 500 mg 00:00: [place] tablet 00 Medical Branch hydrochloro Yes Univer s thiazide 9-15 ity of (ESIDRIX) 00:00: [place] 25 mg 00 Medical tablet Branch hydrochloro Yes Univer s thiazide 9-15 ity of (ESIDRIX) 00:00: [place] 25 mg 00 Medical tablet Branch valACYclovi Yes Univer s r (VALTREX) 9-15 ity of 500 mg 00:00: [place] tablet 00 Medical Branch valACYclovi Yes Univer s r (VALTREX) 9-15 ity of 500 mg 00:00: [place] tablet 00 Medical Branch hydrochloro Yes Univer s thiazide 9-15 ity of (ESIDRIX) 00:00: [place] 25 mg 00 Medical tablet Branch valACYclovi Yes Univer s r (VALTREX) 9-15 ity of 500 mg 00:00: [place] tablet 00 Medical Branch hydrochloro Yes Univer s thiazide 9-15 ity of (ESIDRIX) 00:00: [place] 25 mg 00 Medical tablet Branch valACYclovi Yes Univer s r (VALTREX) 9-15 ity of 500 mg 00:00: [place] tablet 00 Medical Branch hydrochloro Yes Univer s thiazide 9-15 ity of (ESIDRIX) 00:00: [place] 25 mg 00 Medical tablet Branch valACYclovi Yes Univer s r (VALTREX) 9-15 ity of 500 mg 00:00: [place] tablet 00 Medical Branch Vital Signs Vital Name Observation Time Observation Value Comments Source Systolic blood 2020-10-21 19:28:00 128 mm[Hg] Univer sity of pressure [place] [facility] Diastolic blood 2020-10-21 19:28:00 84 mm[Hg] Unive rsity of pressure [place] [facility] Heart rate 2020-10-21 19:28:00 88 /min [facility]i ty [facility] [place] [facility] Body height 2020-10-21 19:28:00 170.2 cm [facility] [place] [facility] Body weight 2020-10-21 19:28:00 100.699 kg [facility] [place] [facility] BMI 2020-10-21 19:28:00 34.77 kg/m2 [facility] [place] [facility] Body height 2020-08-22 16:53:00 167.6 cm [facility] [place] [facility] Body weight 2020-08-22 16:53:00 97.523 kg [facility] [place] [facility] BMI 2020-08-22 16:53:00 34.70 kg/m2 Universi ty of [facility] Branch Systolic blood 2020-03-27 14:01:00 133 mm[Hg] Univer sity of pressure [facility] Diastolic blood 2020-03-27 14:01:00 90 mm[Hg] Unive rsity of pressure [facility] Heart rate 2020-03-27 14:01:00 85 /min [facility] [place] [facility] Body height 2020-03-27 14:01:00 167.6 cm [facility] [place] [facility] Body weight 2020-03-27 14:01:00 97.523 kg [facility] [place] [facility] BMI 2020-03-27 14:01:00 34.70 kg/m2 [facility] [place] [facility] Systolic blood 2020-02-25 20:13:00 127 mm[Hg] Univer sity of pressure [place] [facility] Diastolic blood 2020-02-25 20:13:00 77 mm[Hg] Unive rsity of pressure [facility] Heart rate 2020-02-25 20:13:00 80 /min [facility]i ty [facility] [place] [facility] Respiratory rate 2020-02-25 20:13:00 18 /min Univ ersity of [facility] Branch Body height 2020-02-25 20:13:00 167.6 cm [facility] [place] [facility] Body weight 2020-02-25 20:13:00 99.791 kg [facility] [place] [facility] BMI 2020-02-25 20:13:00 35.51 kg/m2 [facility] [place] [facility] Systolic blood 2020-02-25 20:13:00 127 mm[Hg] Univer sity of pressure [facility] Diastolic blood 2020-02-25 20:13:00 77 mm[Hg] Unive rsity of pressure [facility] Heart rate 2020-02-25 20:13:00 80 /min Universi ty of [facility] Branch Respiratory rate 2020-02-25 20:13:00 18 /min Univ ersity of [facility] Body height 2020-02-25 20:13:00 167.6 cm [facility]i ty [facility] [place] [facility] Body weight 2020-02-25 20:13:00 99.791 kg Universi ty of [facility] BMI 2020-02-25 20:13:00 35.51 kg/m2 Universi ty of [facility] Systolic blood 2020-02-12 16:04:00 134 mm[Hg] Univer sity of pressure [facility] Diastolic blood 2020-02-12 16:04:00 71 mm[Hg] Unive rsity of pressure [facility] Heart rate 2020-02-12 16:04:00 88 /min Universi ty of [facility] Body temperature 2020-02-12 16:04:00 37 Venita Univ ersity of [facility] Respiratory rate 2020-02-12 16:04:00 18 /min Univ ersity of [facility] Oxygen saturation in 2020-02-12 16:04:00 100 /min University of Arterial blood by [facility] Pulse oximetry Branch Body height 2020-02-11 13:33:00 165.1 cm [facility]i ty of [place] [facility] [place] Body weight 2020-02-11 13:33:00 102.059 kg [facility] [place] [facility] BMI 2020-02-11 13:33:00 37.44 kg/m2 Universi ty of [facility] Respiratory rate 2020-02-11 17:13:00 24 /min Univ ersity of [facility] Branch Systolic blood 2020-01-28 20:16:00 135 mm[Hg] Univer sity of pressure [facility] Branch Diastolic blood 2020-01-28 20:16:00 83 mm[Hg] Unive rsity of pressure [facility] Heart rate 2020-01-28 20:16:00 74 /min Universi ty of [facility] Body height 2020-01-28 20:15:00 165.1 cm [facility] Body weight 2020-01-28 20:15:00 102.059 kg [facility] Medical [place] BMI 2020-01-28 20:15:00 37.44 kg/m2 [facility] Systolic blood 2020-01-09 19:13:00 128 mm[Hg] Univer sity of pressure [facility] Diastolic blood 2020-01-09 19:13:00 85 mm[Hg] Unive rsity of pressure [facility] Heart rate 2020-01-09 19:13:00 86 /min [facility] Body weight 2020-01-09 19:13:00 99.791 kg [facility] BMI 2020-01-09 19:13:00 35.51 kg/m2 [facility] Procedures Procedure Date / Time Performing Clinician Source Performed REFERRAL- 2020-06-27 06:01:00 Doctor Unassigned, [facility] REQUEST/RESPONSE [place] [facility] MEDICAL RELEASE/CLEARANCE 2020-06-19 06:01:00 Doctor Unassigned, [facility] FORMS [place] [facility] REFERRAL- 2020-05-22 06:01:00 Doctor Unassigned, [facility] REQUEST/RESPONSE [place] [facility] REFERRAL- 2020-03-18 05:01:00 Doctor Unassigned, [facility] REQUEST/RESPONSE [place] [facility] ASSIGNMENT OF BENEFITS 2020-02-25 19:54:51 Doctor Unassigned, [facility] [place] [facility] MEDICAL RELEASE/CLEARANCE 2020-02-23 05:01:00 Doctor Unassigned, [facility] FORMS [place] [facility] REFERRAL- 2020-02-20 05:01:00 Doctor Unassigned, [facility] REQUEST/RESPONSE [place] [facility] REFERRAL- 2020-02-19 05:01:00 Doctor Unassigned, [facility] REQUEST/RESPONSE [place] [facility] HOME HEALTH - OTHER 2020-02-14 05:01:00 Doctor Unassigned, [facility] [place] [facility] BASIC METABOLIC PANEL 2020-02-12 10:44:00 Esvin Kelley [facility] (NA, K, CL, CO2, GLUCOSE, Medica l Branch BUN, CREATININE, CA) CBC WITH DIFF 2020-02-12 10:44:00 Esvin Kelley [facility] XR KNEE <3 VW BILATERAL 2020-02-11 19:11:36 [facility] 2020-02-11 18:36:54 Ghada Ye o f [facility] INTUBATION 2020-02-11 15:40:14 Austin Ortiz [facility] ABORH CONFIRMATION 2020-02-11 14:32:00 Esvin Kelley [facility] HB ABO GROUPING 2020-02-11 14:15:00 Esvin Kelley [facility] TOTAL KNEE ARTHROPLASTY 2020-02-11 14:14:00 Esvin Kelley [facility] COMP. METABOLIC PANEL 2020-02-11 14:13:00 Esvin Kelley [facility] ([id number]) [facility] CBC WITH DIFF 2020-02-11 14:13:00 Esvin Kelley [facility] COVID-19 (ID NOW RAPID 2020-02-11 12:58:00 Esvin Kelley [facility] TESTING) Medical [place] INSURANCE CORRESPONDENCE 2020-01-31 05:01:00 Doctor Unassigned, [facility] [place] [facility] DISCLOSURE AND CONSENT, 2020-01-28 05:01:00 Doctor Unassigned, [facility] MEDICAL AND SURGICAL [place] [facility] PROCEDURES XR KNEE 3 VW BILATERAL 2020-01-09 19:10:50 Esvin Kelley [facility] Encounters Start End Encounter Admission Attending Care Care Encounter Source Date/Time Date/Time Type Type Clinicians Facility Department ID 2021-05-08 Inpatient R MEGHAN KELLEY JOE [id number] Univers 08:55:48 ESVIN terrazas [facility] 2021-10-29 2021-10-29 Telephone MEGHAN Kelley 1.2.840.114 [id number] Univers 00:00:00 00:00:00 Esvin Mccartney [facility] [id number] it y of [place] 4.2.7.2.686 Ronald as NENITA?BLEA [phone] Ms janna MEDELLIN [address] [place] [address] MEDICAL OFFICE BUILDING 2020-10-21 2020-10-21 Office Ruth Ann [facility] 1.2.840.114 [id number] Univers 14:18:04 14:33:04 Visit Karla Kaur [facility] [id number] it y of Surgical 4.2.7.2.686 Ronald as Specialti [id number] Ms dical es [address] [facility] 2020-10-21 2020-10-21 [facility] [id number] Univers 14:15:00 14:15:00 [facility] 2020-09-23 2020-09-23 [facility] 1.2.840.114 [id number] Univers 00:00:00 00:00:00 Outreach Randy SULLIVAN [id number] i ty of [facility] [place] [id number] Ms dical [address] [place] 2020-08-22 2020-08-22 Office [facility] [id number] Univers 10:47:31 11:12:17 Visit [facility] [id number] it y of Surgical 4.2.7.2.686 Ronald as Specialti [phone] Ms dical es [address] [facility] 2020-08-22 2020-08-22 [facility] [id number] Univers 10:45:00 10:45:00 ESVIN [facility] 2020-06-27 2020-06-27 Orders Doctor PRATT 1.2.840.114 [id number] Univers 00:00:00 00:00:00 Only Unassigned, LAM 350.1.13.10 ity of [place] 4.2.7.2.686 Ronald as [phone] [facility] [address] [place] 2020-06-19 2020-06-19 Orders Doctor PRATT 1.2.840.114 [id number] Univers 00:00:00 00:00:00 Only Unassigned, LAM 350.1.13.10 ity of [facility] 4.2.7.2.686 Ronald as [phone] [address] 2020-05-22 2020-05-22 Orders Doctor PRATT 1.2.840.114 [id number] Univers 00:00:00 00:00:00 Only Unassigned, LAM 350.1.13.10 ity of [facility] 4.2.7.2.686 Ronald as [id number] [address] 2020-03-27 2020-03-27 Office [facility] [id number] Univers 08:57:32 09:33:04 Visit [facility] 350.1.13.10 it y of Surgical 4.2.7.2.686 Ronald as Specialti [phone] Me dical es [address] [facility] 2020-03-27 2020-03-27 [facility] [id number] Univers 09:00:00 09:00:00 [facility] 2020-03-18 2020-03-18 Orders Doctor TERENCE 1.2.840.114 [id number] Univers 00:00:00 00:00:00 Only Unassigned, LAM 350.1.13.10 ity of [facility] 4.2.7.2.686 Ronald as [id number] [address] 2020-02-25 2020-02-25 Hospital [facility] 1.2.840.114 [id number] Univers 15:02:30 23:59:00 Encounter [facility] [id number] ity of Surgical 4.2.7.2.686 Ronald as Specialti [phone] Me dical es [address] [facility] 2020-02-25 2020-02-25 [facility] [id number] Univers 15:02:30 23:59:00 ESVIN nini [facility] 2020-02-25 2020-02-25 Office [facility] [id number] 14:56:05 15:50:50 Visit [facility]vin [facility] 350.1.13.10 Surgical 4.2.7.2.686 Specialti [phone] es [address] [place] 2020-02-25 2020-02-25 Office [facility] [id number] Univers 14:56:05 15:50:50 Visit [facility] 350.1.13.10 it y of Surgical 4.2.7.2.686 Ronald as Specialti [id number] Ms dical es [address] [facility] 2020-02-25 2020-02-25 Outpatient R ALLIE [facility] [id number] Univers 15:00:00 15:00:00 ESVIN ity of [facility] 2020-02-25 2020-02-25 Orders Doctor TERENCE 1.2.840.114 [id number] Univers 00:00:00 00:00:00 Only Unassigned, LAM 350.1.13.10 ity of [facility] 4.2.7.2.686 Ronald as [phone] [address] 2020-02-23 2020-02-23 Orders Doctor TERENCE 1.2.840.114 [id number] Univers 00:00:00 00:00:00 Only Unassigned, LAM 350.1.13.10 ity of [facility] 4.2.7.2.686 Ronald as [phone] [address] 2020-02-21 2020-02-21 Telephone [facility] 1.2.840.114 [id number] Univers 00:00:00 00:00:00 Esvin Mccartney [facility] 350.1.13.10 it y of Surgical 4.2.7.2.686 Ronald as Specialti [id number] Ms dical es [address] [facility] 2020-02-20 2020-02-20 Orders Doctor PRATT 1.2.840.114 [id number] Univers 00:00:00 00:00:00 Only Unassigned, LAM 350.1.13.10 ity of [facility] 4.2.7.2.686 Ronald as [id number] [address] 2020-02-20 2020-02-20 Orders Doctor TERENCE 1.2.840.114 [id number] 00:00:00 00:00:00 Only Unassigned, LAM 350.1.13.10 [facility] 4.2.7.2.686 [id number] 2020-02-19 2020-02-19 Telephone [facility] 1.2.840.114 [id number] Univers 00:00:00 00:00:00 Esvin L [facility] 350.1.13.10 it y of Surgical 4.2.7.2.686 Ronald as Specialti [phone] Ms dical es [address] [facility] 2020-02-19 2020-02-19 Orders Doctor TERENCE 1.2.840.114 [id number] Univers 00:00:00 00:00:00 Only Unassigned, LAM 350.1.13.10 ity of [facility] 4.2.7.2.686 Ronald as [phone] [address] 2020-02-19 2020-02-19 Orders Doctor TERENCE 1.2.840.114 [id number] 00:00:00 00:00:00 Only Unassigned, LAM 350.1.13.10 [facility] 4.2.7.2.686 [id number] [facility] 2020-02-18 2020-02-18 Refill [facility] [id number] Univers 00:00:00 00:00:00 [facility]vin [facility] 350.1.13.10 it y of Surgical 4.2.7.2.686 Ronald as Specialti [phone] Ms dical es [address] [facility] 2020-02-14 2020-02-14 Orders Doctor TERENCE 1.2.840.114 [id number] Univers 00:00:00 00:00:00 Only Unassigned, LAM 350.1.13.10 ity of [facility] 4.2.7.2.686 Ronald as [phone] [address] 2020-02-13 2020-02-13 Telephone [facility] 1.2.840.114 [id number] Univers 00:00:00 00:00:00 Esvin [facility] 350.1.13.10 it y of Surgical 4.2.7.2.686 Ronald as Specialti [phone] Ms dical es [address] [facility] 2020-02-13 2020-02-13 Telephone [facility] 1.2.840.114 [id number] Univers 00:00:00 00:00:00 [facility]vin [facility] 350.1.13.10 it y of Surgical 4.2.7.2.686 Ronald as Specialti [phone] Ms dical es [address] [facility] 2020-02-11 2020-02-12 Hospital [facility] 1.2.840.114 [id number] Univers 07:32:00 17:20:00 Encounter Esvin Ahn 350.1.13.10 ity [place] [id number] [facility] [address] [place] 2020-02-11 2020-02-12 Outpatient [facility] SOR [id number] Univers 07:32:00 17:20:00 [facility] 2020-02-11 2020-02-11 Anesthesia DaronIra [facility] 1.2.840 .114 [id number] Univers 09:29:00 12:26:00 Jean Pierre Barth [place] 35 0.1.13.10 ity [place] [id number] [address] 2020-02-11 2020-02-11 Prep For [facility] 1.2.840.114 [id number] Univers 00:00:00 00:00:00 Surgery Esvin Mccartney [facility] 350.1.13.10 it y of Surgical 4.2.7.2.686 Ronald as Specialti [phone] Ms dicmi es [address] [facility] 2020-01-28 2020-01-29 Office [facility] [id number] Univers 15:08:08 16:19:40 Visit Esvin Payan 350.1.13.10 it y of Surgical 4.2.7.2.686 Ronald as Specialti [phone] Ms dical es [address] [facility] 2020-01-28 2020-01-28 [facility] [id number] Univers 16:00:00 16:00:00 ESVIN [facility] 2020-01-21 2020-01-21 Telephone [facility] 1.2.840.114 [id number] Univers 00:00:00 00:00:00 Esvin Payan 350.1.13.10 it y of Surgical 4.2.7.2.686 Ronald as Specialti [id number] Ms dical es [address] [facility] 2020-01-09 2020-01-09 [facility] [id number] Univers 14:10:49 23:59:00 ESVIN terrazas [facility] 2020-01-09 2020-01-09 [facility] 1.2.840.114 [id number] Univers 14:10:00 23:59:00 Encounter Esvin Payan 350.1.13.10 ity of Surgical 4.2.7.2.686 Ronald as Specialti [phone] Ms dical es [address] [facility] 2020-01-09 2020-01-09 Office [facility] [id number] Univers 14:08:45 14:34:12 Visit Esvin Payan 350.1.13.10 it y of Surgical 4.2.7.2.686 Ronald as Specialti [phone] Ms dical es [address] [facility] 2020-01-09 2020-01-09 Outpatient R [facility] [id number] Univers 14:15:00 14:15:00 ESVIN terrazas [facility] 2019-03-28 2019-03-28 Refill [facility] [id number] Univers 00:00:00 00:00:00 Esvin Payan 350.1.13.10 it y of Surgical 4.2.7.2.686 Ronald as Specialti [phone] Ms dical es [address] [facility] 2019-02-05 2019-02-05 [facility] 1.2.840.114 [id number] Univers 14:19:47 23:59:00 Encounter Esvin Payan 350.1.13.10 ity of Surgical 4.2.7.2.686 Ronald as Specialti [phone] Ms dical es [address] [facility] Results Test Description Test Time Test Comments Results Result Comments Source BASIC METABOLIC PANEL (NA, K, CL, CO2, GLUCOSE, BUN, 2020-02 11:07:00 CREATININE, CA) Test Item Value Reference Range Interpretation Comme nts NA (test code = 5525559313) 136 mmol/L 135-145 K (test code = 1904202206) 4.2 mmol/L 3.5-5 CL (test code = 8639918162) 106 mmol/L 98-108 CO2 TOTAL (test code = 1597460280) 26 mmol/L 23-31 AGAP (test code = 1417922508) 2-16 BUN (test code = 8772249791) 16 mg/dL 7-23 GLUCOSE (test code = 7733146080) 152 mg/dL 70-110 H CREATININE (test code = 0.78 mg/dL 0.5-1.04 7915185610) CALCIUM (test code = 1588252187) 8.5 mg/dL 8.6-10.6 L eGFR Calculation (Non- mL/min/1.73m2 [place]) (test code = 5360881023) eGFR Calculation ( mL/min/1.73m2 [place]) (test code = 5266603563) MARILYN (test code = MARILYN) Association of Glomerular Filtration Rate (GFR) and Staging of Kidney Disease* + +-------- + ------+| GFR (mL/min/1.73 m2) ?| With Kidney Damage ?| ?Without Kidney Damage+ +-- + +| ?>90 ?| ?Stage one ?| ? Normal ?+ +------- + -------+| ?60-89 ?| ?Stage two ?| ? Decreased GFR ? + +-------- + ------+| ?30-59 ?| ?Stage three ?| ? Stage three ? + +-------- + ------+| ?15-29 ?| ?Stage four ? | ? Stage four ?+ +------- + -------+| ?<15 (or dialysis) ? ?| ?Stage five ? | ? Stage five ?+ +------- + -------+ *Each stage assumes the associated GFR level has been in effect for at least three months. ?Stages 1 to 5, with or without kidney disease, indicate chronic kidney disease. Notes: Determination of stages one and two (with eGFR >59mL/min/1.73 m2) requires estimation of kidney damage for at least three months as defined by structural or functional abnormalities of the kidney, manifested by either:Pathological abnormalities or Markers of kidney damage (including abnormalities in the composition of the blood or urine or abnormalities in imaging tests). Lab Interpretation (test code = Abnormal 65259-2) [facility] with [id number] 10:57:00 Test Item Value Reference Range Interpretation Comments WBC (test code = See_Comment [Automated 6690-2) message] The sy stem which generated this result transmitted reference range : 4.30 - 11.10 10*3/?L. The reference range was not used to interpret this result as normal/abnormal . RBC (test code = See_Comment L [Automated 789-8) message] The sy stem which generated this result transmitted reference range : 3.93 - 5.25 10*6/?L. The reference range was not used to interpret this result as normal/abnormal . HGB (test code = 10.0 g/dL 11.6-15 L 718-7) HCT (test code = 32.7 % 35.7-45.2 L 4544-3) MCV (test code = 91.9 fL 80.6-95.5 787-2) MCH (test code = 28.1 pg 25.9-32.8 785-6) MCHC (test code = 30.6 g/dL 31.6-35.1 L 786-4) RDW-SD (test code = 49.1 fL 39-49.9 02550-1) RDW-CV (test code = 14.6 % 12-15.5 788-0) PLT (test code = See_Comment [Automated 777-3) message] The sy stem which generated this result transmitted reference range : 166 - 358 10*3/ ?L. The reference r sal was not used to interpret this result as normal/abnormal . MPV (test code = 11.4 fL 9.5-12.9 29834-3) NRBC/100 WBC (test See_Comment [Automat ed code = 4621430477) message] The system which generated this result transmitted reference range : 0.0 - 10.0 /100 WBCs. The refer ence range was not u sed to interpret th is result as normal/abnormal . NRBC x10^3 (test code <0.01 See_Comment [Auto mated = 3853710441) message] The s ystem which generated this result transmitted reference range : 10*3/?L. The reference range was not used to interpret this result as normal/abnormal . GRAN MAT (NEUT) % 81.6 % (test code = 770-8) IMM GRAN % (test code 0.60 % = 9947061412) LYMPH % (test code = 8.8 % 736-9) MONO % (test code = 8.8 % 5905-5) EOS % (test code = 0.0 % 713-8) BASO % (test code = 0.2 % 706-2) GRAN MAT x10^3(ANC) 8.86 10*3/uL 1.88-7.09 H (test code = 1311709989) IMM GRAN x10^3 (test 0.07 10*3/uL 0-0.06 H code = 4755283884) LYMPH x10^3 (test code 0.96 10*3/uL 1.32-3.29 L = 731-0) MONO x10^3 (test code 0.96 10*3/uL 0.33-0.92 H = 742-7) EOS x10^3 (test code = <0.03 0.03-0.39 L 711-2) BASO x10^3 (test code <0.03 0.01-0.07 = 704-7) Lab Interpretation Abnormal (test code = 40377-3) [facility] bilateral 2020-02-11 20:28:57 Immediate postoperative appearance of bilateral knee arthroplasty withoutan acute hardware complication. EXAM: XR KNEE <3 VW BILATERAL HISTORY: s/p ?total knee Maintain knee immobilizer/brace/splint/cast COMPARISON: 01/09/2020 FINDINGS: Imaging of the bilateral knees was obtained. Changes of bilateral kneearthroplasty are seen with anatomic alignment of the components. No acutefracture is identified. Postsurgical soft tissue swelling, gas and drainsare noted. [facility], Radiant Results Inft User - 02/11/2020 3:30 PM CDTEXAM:XR KNEE <3 VW BILATERALHISTORY:s/p total knee Maintain knee immobilizer/brace/splint/castCOMPARISON:01/09/2020FINDINGS: Imaging of the bilateral knees was obtained. Changes of bilateral kneearthroplasty are seen with anatomic alignment of the components. No acutefracture is identified. Postsurgical soft tissue swelling, gas and drainsare noted.IMPRESSIONImmediate postoperative appearance of bilateral knee arthroplasty withoutan acute hardware complication.[facility] BranchNerve [id number] 18:36:54 Jean Pierre Barth MD ? ? 02/11/2020 ?2:36 PM Nerve Block Procedure: Other Peripheral Nerve Laterality: BilateralSurgical Anesthesia: no Start Time: 02/11/2020 1:15 PMEnd Time: 02/11/2020 1:37 PMPost Op Pain Management requested by surgeon per surgical: OR PostingAnesthesiologist: Jean Pierre Barth MDResident/ANGLE SHEAR OPERATOR: Ghada Ye III, CRNAPerformed by: anesthesiologist and resident/CRNAPreanesthetic timeout completed prior to procedure: patient identified,IV checked, site marked, risks and benefits discussed, surgical consent, monitors and equipment checked, pre-op evaluation, timeout pe rformedInformed consent obtained patient wishes to proceed: yesPatient position: supine.Sterile Prep/Drape: YesMonitoring: continuous pulse ox, blood pressure and ECGInjection Technique: single-shotNeedle Type: StimuplexNeedle Gauge: 22 GNeedle Length: 4.0Number of Attempts: 1Technique: Ultrasound guided, Negative aspiration and Intermittent aspiration during injectionSensory Effect: AdequateEvents: Patient tolerated procedure well, Negative Aspiration, No paresthesia on incremental injection, Localanesthetic solution visualized around nerve and No symptoms of intraneural or IV injection Medications Given: Regional:Bupiv 0.5% 40 mL Additional Notes:Bilateral adductor canal block 25cc Left and 15 cc Right [facility] [id number] 15:40:14Austin Ortiz CRNA ? ? 02/11/2020 10:41 AMIntubationDate/Time: 02/11/2020 9:40 AMAirway not difficult General Information and Staff Patient location during procedure: ORResident/ANGLE SHEAR OPERATOR: Austin Ortiz CRNA Indications and Patient ConditionIndications for airway management: anesthesiaSpontaneous ventilation: presentSedation level: deepPreoxygenated: yesPatient position: sniffingMILS maintained throughoutMask difficulty assessment: 1 - vent by maskNo planned trial extubation Final Airway DetailsFinal airway type: endotracheal airway Successful airway: ETTCuffed: yes Successful intubation technique: direct laryngoscopyEndotracheal tube insertion site: oralBlade: MillerBlade size: #2ETT size (mm): 7.0Cormack-Lehane Classification: grade I - full view of glottisPlacement verified by: chest auscultation and capnometry Measured from: lipsNumber of attempts at approach: 1Number of other approaches attempted: 0 [facility] CenterType and Screen - ONCE [id number] 15:39:58 Test Item Value Reference Range Interpretation Comments ABO & RH (test code A Positive Performe d at [facility] = 20) Laboratory [facility] [place], [place] [address]Toll Free: [phone] A No. [id number] IAT (test code = Negative Performed a t [facility] 1185) Laboratory [facility] [place], [place] [address]Toll Free: [phone] A No. [id number] [facility] CenterABORH [id number] 15:11:46 Test Item Value Reference Range Interpretation Comments ABO & RH (test code A Positive Performe d at [facility] = 20) Laboratory [facility] [place], [place] [address]Toll Free: [phone] A No. [id number] [facility]. METABOLIC PANEL (74080)2020-02-11 14:58:00 Test Item Value Reference Range Interpretation Comments NA (test code = 138 mmol/L 135-145 6055545492) K (test code = 4.1 mmol/L 3.5-5 4886040915) CL (test code = 108 mmol/L 98-108 6414486275) CO2 TOTAL (test code = 24 mmol/L 23-31 4365264406) AGAP (test code = 2-16 4331537836) BUN (test code = 23 mg/dL 7-23 6237634218) GLUCOSE (test code = 106 mg/dL 70-110 3797573484) CREATININE (test code = 0.75 mg/dL 0.5-1.04 4697696751) TOTAL BILI (test code = 0.3 mg/dL 0.1-1.6 8376102883) CALCIUM (test code = 9.1 mg/dL 8.6-10.6 0293212342) T PROTEIN (test code = 7.0 g/dL 6.3-8.2 2171616796) ALBUMIN (test code = 3.8 g/dL 3.5-5 0853189911) ALK PHOS (test code = 83 U/L 34-122 9162749845) ALTv (test code = 44 U/L 5-35 H 1742-6) AST(SGOT) (test code = 38 U/L 13-40 2601088664) eGFR Calculation mL/min/1.73m2 (Non-) (test code = 7697808866) eGFR Calculation mL/min/1.73m2 () (test code = 9876708498) MARILYN (test code = MARILYN) Association of Glomerular Filtration Rate (GFR) and Staging of Kidney Disease* + --+ --+ ------+| GFR (mL/min/1.73 m2) ?| With Kidney Damage ?| ?Without Kidney Damage+ --------+ --------+ +| ?>90 ?| ?Stage one ?| ? Normal ?+ ---+ ---+ -------+| ?60-89 ?| ?Stage two ?| ? Decreased GFR ? + --+ --+ ------+| ?30-59 ?| ?Stage three ?| ? Stage three ? + --+ --+ ------+| ?15-29 ?| ?Stage four ? | ? Stage four ?+ ---+ ---+ -------+| ?<15 (or dialysis) ? ?| ?Stage five ? | ? Stage five ?+ ---+ ---+ -------+ *Each stage assumes the associated GFR level has been in effect for at least three months. ?Stages 1 to 5, with or without kidney disease, indicate chronic kidney disease. Notes: Determination of stages one and two (with eGFR >59mL/min/1.73 m2) requires estimation of kidney damage for at least three months as defined by structural or functional abnormalities of the kidney, manifested by either:Pathological abnormalities or Markers of kidney damage (including abnormalities in the composition of the blood or urine or abnormalities in imaging tests). Lab Interpretation Abnormal (test code = 43207-0) [facility] WITH [id number] 14:32:00 Test Item Value Reference Range Interpretation Comments WBC (test code = See_Comment [Automated message] 8890-2) The system [employer] generated this result transmitted ref erence range: 4.30 - 1 1.10 10*3/?L. The re ference range was not u sed to interpret this result as normal/abnor mal. RBC (test code = See_Comment [Automated message] 009-8) The system [employer] generated this result transmitted ref erence range: 3.93 - 5 .25 10*6/?L. The re ference range was not u sed to interpret this result as normal/abnor mal. HGB (test code = 12.0 g/dL 11.6-15 718-7) HCT (test code = 38.0 % 35.7-45.2 4544-3) MCV (test code = 88.6 fL 80.6-95.5 787-2) MCH (test code = 28.0 pg 25.9-32.8 785-6) MCHC (test code = 31.6 g/dL 31.6-35.1 786-4) RDW-SD (test code 46.5 fL 39-49.9 = 48307-0) RDW-CV (test code 14.5 % 12-15.5 = 788-0) PLT (test code = See_Comment [Automated message] 877-3) The system [employer] generated this result transmitted ref erence range: 166 - 35 8 10*3/?L. The re ference range was not u sed to interpret this result as normal/abnor mal. MPV (test code = 11.4 fL 9.5-12.9 21789-4) NRBC/100 WBC (test See_Comment [Automat ed message] code = 1574551805) The syste m which generated this result transmitted ref erence range: 0.0 - 10 .0 /100 WBCs. The refer ence range was not u sed to interpret this result as normal/abnor mal. NRBC x10^3 (test <0.01 See_Comment [Automated message] code = 5424430553) The syste m which generated this result transmitted ref erence range: 10*3/?L. The reference range was not used to interpr et this result as normal/abnormal . GRAN MAT (NEUT) % 58.7 % (test code = 770-8) IMM GRAN % (test 0.30 % code = 2667193053) LYMPH % (test code 29.0 % = 736-9) MONO % (test code 8.4 % = 5905-5) EOS % (test code = 2.6 % 713-8) BASO % (test code 1.0 % = 706-2) GRAN MAT 3.35 10*3/uL 1.88-7.09 x10^3(ANC) (test code = 3900420021) IMM GRAN x10^3 <0.03 0-0.06 (test code = 9279673496) LYMPH x10^3 (test 1.66 10*3/uL 1.32-3.29 code = 731-0) MONO x10^3 (test 0.48 10*3/uL 0.33-0.92 code = 742-7) EOS x10^3 (test 0.15 10*3/uL 0.03-0.39 code = 711-2) BASO x10^3 (test 0.06 10*3/uL 0.01-0.07 code = 704-7) [facility] CenterCOVID-19 (ID NOW RAPID TESTING)2020-02-11 13:31:00 Test Item Value Reference Range Interpretation Comments SARS-CoV-2 Rapid ID NOW Not Detected Not Detected (test code = 78751-1) MARILYN (test code = MARILYN) ID NOW COVID-19 Assay is an isothermal nucleic acid amplification test intended for the qualitative detection of nucleic acid from SARS-CoV-2 viral RNA in nasopharyngeal (QA SOFTWARE TESTER) specimens. It is used under Emergency Use Authorization (EUA) by FDA. The limit of detection (LOD) of the assay is 125 Genome Equivalents/mL. A positive result is indicative of the presence of SARS-CoV-2 RNA. ?Clinical correlation with patient history and other diagnostic information is necessary to determine patient infection status. A negative (Not Detected) result does not preclude SARS-CoV-2 infection. In patients with clinical symptoms and other tests that are consistent with SARS-CoV-2 infection, negative results should be treated as presumptive negative and a new specimen should be tested with alternative PCR molecular test. Invalid: Please collect a new specimen for repeat patient testing if clinically indicated. Lab Interpretation Normal (test code = 74911-8) [facility] CenterXR KNEE 3 VW [id number] 21:12:11Bone on bone medial joint line bilaterallyUnHouston [facility]"
[2022-08-09] MEDS ORDERED: FAMOTIDINE 20 MG/2 ML VIAL IV ONE (19:59)
[2022-08-09] MEDS ORDERED: ONDANSETRON 4 MG/2 ML VIAL ONE (19:59)
[2022-08-09] MEDS ORDERED: MORPHINE 4 MG/ML SYR ONE (19:59)
[2022-08-09 20:15] LABS: Absolute Lymphocytes (CBC) 1.3 K/uL (0.7-4.9); Hematocrit 40.3 % (36.0-45.0); Lymphocytes % 12.6 % (15.3-44.8); MCV 88.2 fL (80-100); MPV 8.8 fL (7.6-11.3); RBC Red Blood Cell Count 4.57 M/uL (3.86-4.86)
--- NOTE | 2022-08-09 20:16 | RAD REPORT ---
EXAM DESCRIPTION: RAD - Chest Single View - 08/09/2022 7:59 pm CLINICAL HISTORY: upper abdomen pain COMPARISON: <Comparisons> FINDINGS: Lines: None. Lungs: No evidence of edema or pneumonia. Pleural: No significant pleural effusions or pneumothorax. Cardiac: The heart size is within normal limits. Mediastinum: Within normal limits. Bones: No acute fractures. Other: None IMPRESSION: No acute cardiopulmonary disease.
[2022-08-09 20:19] LABS: Protime INR 0.97
[2022-08-09 20:31] LABS: Albumin 4.1 g/dL (3.4-5.0); Bilirubin Direct 0.2 mg/dL (0-0.2); Bilirubin Total 0.5 mg/dL (0.2-1.0); Magnesium 1.9 mg/dL (1.6-2.4); Protein, Total 7.9 g/dL (6.4-8.2); Troponin High Sensitivity 3.8 pg/mL (<58.9)
[2022-08-09] MEDS ORDERED: HYDROMORPHONE HCL 1 MG/ML INJ ONE (20:35)
[2022-08-09 20:57] LABS: SARS-COV-2 RT PCR NEGATIVE (NEGATIVE)
--- NOTE | 2022-08-09 21:14 | RAD REPORT ---
EXAM DESCRIPTION: US - Abdomen Exam Limited - 08/09/2022 9:04 pm CLINICAL HISTORY: ABD PAIN COMPARISON: Abdomen Pelvis W/Wo Contrast dated 03/25/2020 FINDINGS: The gallbladder demonstrates no gallstones. No pericholecystic fluid or gallbladder wall t hickening. The common bile duct is normal measuring 3 mm. The liver demonstrates no findings of intrahepatic biliary dilatation. IMPRESSION: Unremarkable examination. Negative for cholelithiasis or cholecystitis.
--- NOTE | 2022-08-09 21:51 | RAD REPORT ---
EXAM DESCRIPTION: CTAngio Aorta For Dissection - 08/09/2022 9:23 pm CLINICAL HISTORY: chest pain, abdomen pain, back pain COMPARISON: Abdomen Pelvis W/Wo Contrast dated 03/25/2020 TECHNIQUE: CTA of the chest, abdomen, and pelvis was performed without IV contrast. MIPs of the aort a were created. All CT scans are performed using dose optimization technique as appropriate and may include automated exposure control or mA/KV adjustment according to patient size. FINDINGS: Thorax: Chest Wall: No abnormal mass Lungs: No acute abnormality. Pleura: No effusions or pneumothorax. Maty/Mediastinum: No lymphadenopathy. Mild circumferential thickened distal esophagus. Aorta/Pulmonary Arteries: Unremarkable Heart: Normal size. Abdomen/Pelvis: Liver: Hepatic steatosis Biliary: No biliary ductal dilatation. Stomach: Partial gastrectomy. Duodenum: No significant focal abnormality. Pancreas: No significant abnormality. Spleen: No significant abnormality. Adrenal: New 3.9 cm right adrenal lesion. The Hounsfield units are indeterminate measuring approximat [place] 40. Kidney/ureter: No hydronephrosis. No renal calculi. Renal scarring on the right side. Retroperitoneum: No retroperitoneal adenopathy. Vascular: No aneurysm. Bowel: No significant focal abnormality. Peritoneum: No ascites or free air. Bladder: Grossly unremarkable. Reproductive: No adnexal masses. Bones: No acute fracture. Other: n/a IMPRESSION: 1. No evidence of aortic aneurysm, aortic dissection, or pulmonary embolus. No acute fin dings within the chest, abdomen, or pelvis. 2. New right adrenal mass measuring 3.9 cm. Though benign etiologies are within the differential, mal ignancy needs to be excluded. Further evaluation with PET/CT should be considered. Pheochromocytoma s hould also be excluded (urine metanephrine evaluation). The mass would be amenable to percutaneous bi opsy.
--- NOTE | 2022-08-09 22:22 | ER ---
Nurse's Notes [facility] Ping Name: Mallory Santiago Age: 52 yrs Sex: Female : 1970 Arrival Date: 08/09/2022 Time: 17:17 Bed 15 Private MD: Diagnosis: Upper abdominal pain, unspecified Presentation: 08/09 18:03 Chief complaint: Patient states: right under breast pain causing sweating, and I cant jh5 focus on anything. Coronavirus screen: Vaccine status: Patient reports receiving the 2nd dose of the covid vaccine. Client denies travel out of the [place] in the last 14 days. Ebola Screen: Patient negative for fever greater than or equal to 101.5 degrees Fahrenheit, and additional compatible Ebola Virus Disease symptoms Patient denies exposure to infectious person. Patient denies travel to an Ebola-affected area in the 21 days before illness onset. Initial Sepsis Screen: Does the patient meet any 2 criteria? No. Patient's initial sepsis screen is negative. Does the patient have a suspected source of infection? No. Patient's initial sepsis screen is negative. Risk Assessment: Do you want to hurt yourself or someone else? Patient reports no desire to harm self or others. 18:03 Method Of Arrival: Ambulatory [facility] 18:03 Acuity: GORDON 3 [facility] 21:14 Onset of symptoms was August 09, 2022. aa9 Triage Assessment: 18:07 General: Appears distressed, uncomfortable, Behavior is anxious, crying, fussy, jh5 restless. Pain: Complains of pain in abdomen. GI: Reports upper abdominal pain, nausea, vomiting. 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 - Social history:: Smoking status: Patient denies any tobacco usage or history of. Screenin:13 [facility] ED Fall Risk Assessment (Adult) History of falling in the last 3 months, aa9 including since admission No falls in past 3 months (0 pts) Confusion or Disorientation No (0 pts) Intoxicated or Sedated No (0 pts) Impaired Gait No (0 pts) Mobility Assist Device Used No (0 pt) Altered Elimination No (0 pt) Score/Fall Risk Level 0 - 2 = Low Risk. Abuse screen: Denies threats or abuse. Denies injuries from another. Nutritional screening: Has had N/V for 3 or more days. Tuberculosis screening: No symptoms or risk factors identified. Assessment: 20:09 General: Appears comfortable, Behavior is cooperative, anxious, crying. aa9 20:09 Pain: Complains of pain in epigastric, back pain Pain currently is 10 out of 10 on a aa9 pain scale. Also complains of nausea. Neuro: Level of Consciousness is awake, alert, obeys commands, Oriented to person, place, time, situation. Cardiovascular: Patient's skin is warm and dry. Respiratory: Airway is patent Respiratory effort is even, unlabored. Derm: Skin is intact, is healthy with good turgor, Bruising that is dark purple, on chin. 21:09 Reassessment: Patient appears in no apparent distress at this time. Patient and/or aa9 family updated on plan of care and expected duration. Pain level reassessed. Patient states feeling better. Patient states symptoms have improved. Vital Signs: 18:03 BP 133 / 101; Pulse 81; Resp 22; Temp 98.7; Pulse Ox 100% ; Weight 78.47 kg; Height 5 [facility] ft. 6 in. (167.64 cm); Pain 10/10; 20:28 BP 144 / 88; Pulse 74; Resp 20 S; Pulse Ox 99% ; aa9 21:00 BP 129 / 66; Pulse 83; Resp 19 S; Pulse Ox 95% on R/A; aa9 22:12 BP 134 / 77; Pulse 93; Resp 18 S; Pulse Ox 95% on R/A; as6 18:03 Body Mass Index 27.92 (78.47 kg, 167.64 cm) 5 ED Course: 17:17 Patient arrived in ED. as 17:39 Miguelito Barboza PA is PHCP. cp 17:39 Jaswinder Serrano MD is Attending Physician. cp 18:07 Triage completed. 5 18:08 Arm band placed on right wrist. 5 20:01 XRAY Chest (1 view) In Process Unspecified. EDMS 20:08 Lipase Sent. aa9 20:09 Inserted saline lock: 20 gauge in right antecubital area, using aseptic technique. aa9 Blood collected. 20:16 Verena Jiame, RN is Primary Nurse. aa9 20:16 COVID-19/FLU A+B Sent. aa9 21:06 US Abdomen Limited: RUQ In Process Unspecified. EDMS 21:14 Patient has correct armband on for positive identification. Bed in low position. Call aa9 light in reach. Adult w/ patient. Pulse ox on. NIBP on. Warm blanket given. 21:24 CT Aorta for Dissection In Process Unspecified. EDMS 22:12 No provider procedures requiring assistance completed. as6 22:40 IV discontinued, intact, bleeding controlled, No redness/swelling at site. Pressure as6 dressing applied. Administered Medications: 20:00 Drug: Pepcid (famotidine) 20 mg Route: IVP; Site: right antecubital; aa9 21:12 Follow up: Response: No adverse reaction aa9 20:03 Drug: Zofran (Ondansetron) 4 mg Route: IVP; Site: right antecubital; aa9 21:12 Follow up: Response: No adverse reaction aa9 20:08 Drug: morphine 4 mg Route: IVP; Infused Over: 4 mins; Site: right antecubital; aa9 20:30 Follow up: Response: No adverse reaction; Pain is unchanged, physician notified aa9 20:16 CANCELLED (Physician Discretion): morphine 4 mg IVP once over 4 mins cp 20:43 Drug: Dilaudid (HYDROmorphone) 1 mg Route: IVP; Site: right antecubital; aa9 21:12 Follow up: Response: No adverse reaction; Pain is decreased aa9 22:39 Drug: Dicyclomine 20 mg Route: IM; Site: left ventrogluteal; as6 22:39 Follow up: Response: No adverse reaction as6 Medication: 21:14 VIS not applicable for this client. aa9 Outcome: 22:21 Discharge ordered by MD. cp 22:40 Discharged to home ambulatory, with family. as6 22:40 Condition: stable 22:40 Discharge instructions given to patient, family, Instructed on discharge instructions, follow up and referral plans. medication usage, Demonstrated understanding of instructions, follow-up care, medications, Prescriptions given X 3. 22:40 Patient left the ED. as6 Signatures: Dispatcher [employer] Elsi Ayala as Page, MiguelitoLUNA toussaint cp, Jessica, RN RN jh5 Baljit Payne, RN RN as6 Verena Jaime, RN RN aa9
--- NOTE | 2022-08-09 22:22 | EDPHYS ---
Physician Documentation [facility] Name: Mallory Santiago Age: 52 yrs Sex: Female : 1970 Arrival Date: 08/09/2022 Time: 17:17 Bed 15 Private MD: ED Physician Jaswinder Serrano HPI: 08/09 18:20 This 52 yrs old Female presents to ER via Ambulatory with complaints of Epigastric cp Pain, Back Pain. 18:20 The patient presents with abdominal pain in the right upper quadrant. Onset: The cp symptoms/episode began/occurred this morning. The symptoms do not radiate. Associated signs and symptoms: Pertinent positives: nausea and vomiting, Pertinent negatives: chest pain, constipation, diarrhea, fever, palpitations, shortness of breath. The symptoms are described as constant. Severity of pain: in the emergency department the pain is unchanged despite home interventions. 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 - Social history:: Smoking status: Patient denies any tobacco usage or history of. ROS: 18:25 Constitutional: Negative for body aches, chills, fever, poor PO intake. cp 18:25 Eyes: Negative for injury, pain, redness, and discharge. cp 18:25 ENT: Negative for drainage from ear(s), ear pain, sore throat, difficulty swallowing, difficulty handling secretions. 18:25 Cardiovascular: Negative for chest pain, edema, palpitations. 18:25 Respiratory: Negative for cough, shortness of breath, wheezing. 18:25 Abdomen/GI: Positive for abdominal pain, nausea and vomiting, of the right upper quadrant, Negative for diarrhea, constipation, hematemesis. 18:25 Back: Negative for injury or acute deformity, decreased range of motion, radiated pain. 18:25 Neuro: Negative for altered mental status, dizziness, headache, weakness. 18:25 All other systems are negative. Exam: 18:30 Constitutional: The patient appears in no acute distress, alert, awake, cp non-diaphoretic, non-toxic, well developed, well nourished, in obvious pain, uncomfortable. 18:30 Head/Face: Normocephalic, atraumatic. cp 18:30 Eyes: Periorbital structures: appear normal, Conjunctiva: normal, no exudate, no injection, Sclera: no appreciated abnormality, Lids and lashes: appear normal, bilaterally. 18:30 ENT: External ear(s): are unremarkable, Nose: is normal, Mouth: Lips: moist, Oral mucosa: moist, Posterior pharynx: is normal, airway is patent, no erythema, no exudate. 18:30 Chest/axilla: Inspection: normal. 18:30 Cardiovascular: Rate: normal, Rhythm: regular, Edema: is not appreciated, JVD: is not appreciated. 18:30 Respiratory: the patient does not display signs of respiratory distress, Respirations: normal, no use of accessory muscles, no retractions, labored breathing, is not present, Breath sounds: are clear throughout, no decreased breath sounds, no stridor, no wheezing. 18:30 Abdomen/GI: Inspection: abdomen appears normal, Bowel sounds: active, all quadrants, Palpation: soft, in all quadrants, severe abdominal tenderness, in the right upper quadrant, rebound tenderness, is not appreciated, voluntary guarding, is elicited in the right upper quadrant. 18:30 Back: CVA tenderness, is absent. 18:30 Skin: no rash present. 18:30 Neuro: Orientation: to person, place \T\ time. Mentation: is normal, Motor: moves all fours, strength is normal, Sensation: is normal. 20:17 ECG was reviewed by the Attending Physician. Vital Signs: 18:03 BP 133 / 101; Pulse 81; Resp 22; Temp 98.7; Pulse Ox 100% ; Weight 78.47 kg; Height 5 5 ft. 6 in. (167.64 cm); Pain 10/10; 20:28 BP 144 / 88; Pulse 74; Resp 20 S; Pulse Ox 99% ; aa9 21:00 BP 129 / 66; Pulse 83; Resp 19 S; Pulse Ox 95% on R/A; aa9 22:12 BP 134 / 77; Pulse 93; Resp 18 S; Pulse Ox 95% on R/A; as6 18:03 Body Mass Index 27.92 (78.47 kg, 167.64 cm) 5 MDM: 18:22 Patient medically screened. cp 22:20 Data reviewed: vital signs, nurses notes, lab test result(s), EKG, radiologic studies, cp CT scan, plain films, ultrasound. 22:20 Consideration of Admission/Observation Escalation of care including cp admission/observation considered. I considered the following discharge prescriptions or medication management in the emergency department Medications were administered in the Emergency Department. See MAR. Independent interpretation of the following test(s) in the Emergency Department X-Ray: My interpretation is chest negative for focal pneumonia. Counseling: I had a detailed discussion with the patient and/or guardian regarding: the historical points, exam findings, and any diagnostic results supporting the discharge/admit diagnosis, lab results, radiology results, the need for outpatient follow up, a family practitioner, to return to the emergency department if symptoms worsen or persist or if there are any questions or concerns that arise at home. Response to treatment: the patient's symptoms have markedly improved after treatment, and as a result, I will discharge patient. Special discussion: Based on the patient's Hx, exam, and Dx evaluation, there is no indication for emergent surgery or inpatient Tx. It is understood by the patient/guardian that if the Sx's persist or worsen they need to return immediately for re-evaluation. 08/09 18: Order name: Basic Metabolic Panel; Complete Time: 20:36 cp 08/09 20:36 Interpretation: Normal except: ANION GAP 16.0; GLUC 124; GFR 80. cp 08/09 18: Order name: CBC with Diff; Complete Time: 20:36 cp 08/09 20:37 Interpretation: Normal except: IRENE% 79.1; LYM% 12.6. cp 08/09 18: Order name: LFT's; Complete Time: 20:36 cp 08/09 20:37 Interpretation: Normal except: AST 55; ALT 71; ALK 145; GLOB 3.8. cp 08/09 18: Order name: Magnesium; Complete Time: 20:36 cp 08/09 18: Order name: PT-INR; Complete Time: 20:36 cp 08/09 18: Order name: Troponin HS; Complete Time: 20:36 cp 08/09 22:03 Interpretation: Reviewed. cp 08/09 18: Order name: XRAY Chest (1 view); Complete Time: 20:36 cp 08/09 18: Order name: Lipase; Complete Time: 20:36 cp 08/09 18:09 Order name: COVID-19/FLU A+B; Complete Time: 21:07 cp 08/09 20:17 Order name: US Abdomen Limited: RUQ; Complete Time: 22:01 cp 08/09 22:02 Interpretation: Report reviewed. cp 08/09 21:05 Order name: CT Aorta for Dissection; Complete Time: 22:01 cp 08/09 18:09 Order name: EKG; Complete Time: 18:10 cp 08/09 18:09 Order name: Cardiac monitoring; Complete Time: 20:08 cp 08/09 18:09 Order name: EKG - Nurse/Tech; Complete Time: 20:17 cp 08/09 18:09 Order name: IV Saline Lock; Complete Time: 20:08 cp 08/09 18:09 Order name: Labs collected and sent; Complete Time: 20:08 cp 08/09 18:09 Order name: O2 Per Protocol; Complete Time: 20:08 cp 08/09 18:09 Order name: O2 Sat Monitoring; Complete Time: 20:08 cp 08/09 22:04 Order name: PO challenge; Complete Time: 22:12 cp EC:17 Rate is 73 beats/min. Rhythm is regular. MA interval is normal. QRS interval is normal. cp QT interval is normal. T waves are Inverted in leads aVR, V2, V3, V4. Interpreted by me. Reviewed by me. Administered Medications: 20:00 Drug: Pepcid (famotidine) 20 mg Route: IVP; Site: right antecubital; aa9 21:12 Follow up: Response: No adverse reaction aa9 20:03 Drug: Zofran (Ondansetron) 4 mg Route: IVP; Site: right antecubital; aa9 21:12 Follow up: Response: No adverse reaction aa9 20:08 Drug: morphine 4 mg Route: IVP; Infused Over: 4 mins; Site: right antecubital; aa9 20:30 Follow up: Response: No adverse reaction; Pain is unchanged, physician notified aa9 20:16 CANCELLED (Physician Discretion): morphine 4 mg IVP once over 4 mins cp 20:43 Drug: Dilaudid (HYDROmorphone) 1 mg Route: IVP; Site: right antecubital; aa9 21:12 Follow up: Response: No adverse reaction; Pain is decreased aa9 22:39 Drug: Dicyclomine 20 mg Route: IM; Site: left ventrogluteal; as6 22:39 Follow up: Response: No adverse reaction as6 Disposition: 08/10 07:10 Co-signature as Attending Physician, Jaswinder Serrano MD I reviewed the patient's care rn provided by the Advanced Practice Provider and agree with the diagnosis and treatment plan. Disposition Summary: 08/09/22 22:21 Discharge Ordered Location: Home cp Problem: new cp Symptoms: have improved cp Condition: Stable cp Diagnosis - Upper abdominal pain, unspecified cp Followup: cp - With: Private Physician - When: 2 - 3 days - Reason: Recheck today's complaints Discharge Instructions: - Discharge Summary Sheet cp - Abdominal Pain, Adult cp Forms: - Medication Reconciliation Form cp - Thank You Letter cp - Antibiotic Education cp - Prescription Opioid Use cp Prescriptions: - Protonix 40 mg Oral Tablet - take 1 tablet by ORAL route once daily; 30 tablet; Refills: 0, Product cp Selection Permitted - Zofran 4 mg Oral Tablet - take 1 tablet by ORAL route every 12 hours As needed; 20 tablet; Refills: 0, cp Product Selection Permitted - dicyclomine 20 mg Oral Tablet - take 1 tablet by ORAL route 4 times per day; 30 tablet; Refills: 0, Product cp Selection Permitted Signatures: Dispatcher [employer] EDJaswinder Bustamante MD MD rn Page, Corey, PA PA cp Rashmi Woods, RN RN jh5 Baljit Payne RN RN as6 Verena Jaime RN RN aa9 Corrections: (The following items were deleted from the chart) 08/09 20:16 20:16 morphine 4 mg IVP once over 4 mins ordered. cp cp
[2022-08-09] MEDS ORDERED: DICYCLOMINE HCL 20 MG/2 ML AMP IM ONE (22:36)
[2022-08-09 23:09] VITALS: TEMP 98.7
[2022-08-09 23:13] VITALS: BP 134/77; O2SAT 95
--- NOTE | 2022-08-10 16:55 | EKG ---
Test Date: 2022-08-09 Test Time: 20:13:47 Environmental Solutions Engineer: YVON MEASUREMENT RESULTS: Intervals: Rate: 73 TN: 144 QRSD: 86 QT: 408 QTc: 449 [place]: P: 7 TN: 144 QRS: 29 T: 7 INTERPRETIVE STATEMENTS: Normal sinus rhythm Nonspecific T wave abnormality Abnormal ECG No previous ECG available for comparison Electronically Signed On 08-10-22 16:53:31 TRUCK TRAILER FINAL INSPECTOR by [place] Ledezma
== END 2022-08-09 22:40 | disposition home or self-care (01) ==
LOC: ER 17:17
DX: R10.10 Upper abdominal pain, unspecified (principal); Z20.822 Contact with and (suspected) exposure to COVID-19
CPT/HCPCS: 85025; 80048; 36415; 83735; 85610; 80076; 84484; 83690; 0240U; 71275; 74175; 71045; 76705; Q9967; J0500; J1170; J2405; 93005